=== PATIENT | female | born 1960 | race Caucasian/White ===

== ENCOUNTER 2017-06-06 15:18 | Inpatient (IN) | payer OTHER ==
[2017-06-06] MEDS ORDERED: ALBUTEROL SO4 2.5/IPRATROPIUM 0.5 INH SOL 3 ML VIAL.NEB. NEB ONE ×2 (15:30→18:02)
[2017-06-06] MEDS ORDERED: ALBUTEROL SO4 0.083% IH SOL 2.5 MG/3 ML VIAL.NEB. NEB ONE (16:20)
[2017-06-06] MEDS ORDERED: methylPREDNISolone NA SUCC 125 MG/2 ML VIAL IVPB ONE (16:20)
[2017-06-06] MEDS ORDERED: ONDANSETRON 4 MG/2 ML VIAL IVPB ONE ×2 (16:20→18:02)
[2017-06-06] MEDS ORDERED: IPRATROPIUM BR 0.02% 0.5 MG/2.5 ML VIAL.NEB. NEB ONE (16:20)
--- NOTE | 2017-06-06 16:38 | PDOC ---
History of Present Illness - History of Present Illness Initial Comments: 06/06/17 16:32 56 F with h/o CAD/stents, COPD/asthma, DM, HTN, polysubstance abuse, sent from [facility] for shortness of breath. Pt states that her symptoms began 2 days ago with cough and wheezing. Pt states it feels like her asthma attacks. Denies F/ C. Reports cough productive of white sputum. Denies leg swelling. Denies chest pain. Pt is active smoker, 1 pack per day. Was being treated at [facility] for cocaine abuse. Pt states last asthma exacerbation was years ago. Denies h/o ICU stay or intubation. <Robert Castelan - Last Filed: 06/06/17 16:32> <Taurus Denise - Last Filed: 06/06/17 19:05> - General Chief Complaint: Asthma Stated Complaint: SHORTNESS OF BREATH Time Seen by Provider: 06/06/17 15:50 Past History - Past Medical History Asthma: Yes COPD: Yes HTN: Yes Hypercholesterolemia: Yes Psychiatric Problems: Yes (depression) - Surgical History Cardiac Surgery: Yes (stent x2) - Psycho/Social/Smoking Cessation Hx Suicidal Ideation: No Smoking History: Current every day smoker Have you smoked in the past 12 months: Yes Number of Cigarettes Smoked Daily: 10 Cigars Per Day: 0 Information on smoking cessation initiated: No 'Breaking Loose' booklet given: 06/06/17 Hx Alcohol Use: No Drug/Substance Use Hx: No <Robert Castelan - Last Filed: 06/06/17 16:32> <Taurus Denise - Last Filed: 06/06/17 19:05> - Past Medical History Allergies/Adverse Reactions: Allergies Allergy/AdvReac Type Severity Reaction Status Date / Time erythromycin base Allergy Severe Hives Verified 06/06/17 14:53 Iodinated Contrast- Oral and Allergy Severe Hives Verified 06/06/17 14:53 IV Dye Penicillins Allergy Severe Hives Verified 06/06/17 14:53 Tetracyclines Allergy Severe Hives Verified 06/06/17 14:53 Review of Systems - Review of Systems Comments:: 06/06/17 16:36 "GENERAL/CONSTITUTIONAL: No fever or chills. No weakness. HEAD, EYES, EARS, NOSE AND THROAT: No change in vision. No ear pain or discharge. No sore throat. CARDIOVASCULAR: No chest pain or shortness of breath. RESPIRATORY: +SOB and cough GASTROINTESTINAL: No nausea, vomiting, diarrhea or constipation. GENITOURINARY: No dysuria, frequency, or change in urination. MUSCULOSKELETAL: No joint or muscle swelling or pain. No neck or back pain. SKIN: No rash NEUROLOGIC: No headache, vertigo, loss of consciousness, or change in strength/ sensation. ENDOCRINE: No increased thirst. No abnormal weight change. HEMATOLOGIC/LYMPHATIC: No anemia, easy bleeding, or history of blood clots. ALLERGIC/IMMUNOLOGIC: No hives or skin allergy. " <Ou,Robert - Last Filed: 06/06/17 16:32> *Physical Exam - Vital Signs Last Vital Signs Temp Pulse Resp BP Pulse Ox 98.6 F 92 H 22 160/70 100 06/06/17 15:35 06/06/17 15:39 06/06/17 15:35 06/06/17 15:35 06/06/17 15:39 - Physical Exam Comments: 06/06/17 16:37 "GENERAL: Awake, alert, and fully oriented, in no acute distress HEAD: No signs of trauma EYES: PERRLA, EOMI, sclera anicteric, conjunctiva clear ENT: Auricles normal inspection, hearing grossly normal, nares patent, oropharynx clear without exudates. Moist mucosa NECK: Normal ROM, supple, no lymphadenopathy, JVD, or masses LUNGS: + inspiratory and expiratory wheezes diffusely, no rhonchi, no stridor, bilateral breath sounds HEART: Regular rate and rhythm, normal S1 and S2, no murmurs, rubs or gallops ABDOMEN: Soft, nontender, normoactive bowel sounds. No guarding, no rebound. No masses EXTREMITIES: Normal range of motion, no edema. No clubbing or cyanosis. No cords, erythema, or tenderness NEUROLOGICAL: Cranial nerves II through XII grossly intact. Normal speech, normal gait SKIN: Warm, Dry, normal turgor, no rashes or lesions noted. " <Flip,Robert - Last Filed: 06/06/17 16:32> - Vital Signs Last Vital Signs Temp Pulse Resp BP Pulse Ox 98.2 F 72 16 164/77 95 06/06/17 17:35 06/06/17 17:35 06/06/17 17:35 06/06/17 17:35 06/06/17 17:35 <Taurus Denise - Last Filed: 06/06/17 19:05> Heart Score/ECG Review - ECG Impressions Comment:: 06/06/17 16:39 NSR, no SARAH/STDs, no TWIs, intervals wnl <Ou,Robert - Last Filed: 06/06/17 16:32> ED Treatment Course - RADIOLOGY Radiology Studies Ordered: Category Date Time Status CHEST PA & LAT [RAD] Stat Radiology 06/06/17 16:16 Ordered - Medications Given in the ED: ED Medications Discontinued Medications Generic Name Dose Route Start Last Admin Trade Name Freq PRN Reason Stop Dose Admin Albuterol Sulfate 1 amp 06/06/17 16:20 06/06/17 16:31 Ventolin 0.083% Nebulizer Soln - NEB 06/06/17 16:21 1 amp ONCE ONE Administration Ipratropium [place] 1 amp 06/06/17 16:20 06/06/17 16:30 Atrovent 0.02% Nebulizer - NEB 06/06/17 16:21 1 amp ONCE ONE Administration <Ou,Robert - Last Filed: 06/06/17 16:32> - LABORATORY CBC & Chemistry Diagram: 06/06/17 16:33 06/06/17 16:33 - ADDITIONAL ORDERS Additional order review: Laboratory Results 06/06/17 06/06/17 06/06/17 16:45 16:37 16:33 VBG pH 7.40 POC VBG pCO2 56.7 H POC VBG pO2 22.2 L Mixed VBG HCO3 34.7 H Sodium 123 L* Potassium 2.8 L* Chloride 79 L Carbon Dioxide 31 Anion Gap 13 BUN 10 Creatinine 0.7 Creat Clearance w eGFR > 60 Random Glucose 330 H* Calcium 8.9 Magnesium 1.5 L Total Bilirubin 0.6 AST 11 L ALT 14 Alkaline Phosphatase 122 H B-Natriuretic Peptide Total Protein 7.2 Albumin 3.1 L 06/06/17 16:33 VBG pH POC VBG pCO2 POC VBG pO2 Mixed VBG HCO3 Sodium Potassium Chloride Carbon Dioxide Anion Gap BUN Creatinine Creat Clearance w eGFR Random Glucose Calcium Magnesium Total Bilirubin AST ALT Alkaline Phosphatase B-Natriuretic Peptide 316.77 H Total Protein Albumin 06/06/17 16:33 RBC 4.93 MCV 63.3 L MCHC 31.5 L RDW 17.9 H MPV 7.1 L Neutrophils % 73.1 Lymphocytes % 12.5 Monocytes % 13.0 H Eosinophils % 0.6 Basophils % 0.8 - Medications Given in the ED: ED Medications Discontinued Medications Generic Name Dose Route Start Last Admin Trade Name Charlene PRN Reason Stop Dose Admin Albuterol Sulfate 1 amp 06/06/17 16:20 06/06/17 16:31 Ventolin 0.083% Nebulizer Soln - NEB 06/06/17 16:21 1 amp ONCE ONE Administration Albuterol/Ipratropium 1 amp 06/06/17 18:02 06/06/17 18:18 Duoneb - NEB 06/06/17 18:03 1 amp ONCE ONE Administration Potassium Chloride 100 mls @ 100 mls/hr 06/06/17 17:30 06/06/17 17:34 Potassium Chloride 10 Meq Premix Ivpb - IVPB 06/06/17 18:29 100 mls/hr Q60M MANJEET Administration Sodium Chloride 500 mls @ 500 mls/hr 06/06/17 18:02 06/06/17 18:19 Normal Saline - IV 06/06/17 19:01 500 mls/hr ASDIR STA Administration Ipratropium [place] 1 amp 06/06/17 16:20 06/06/17 16:30 Atrovent 0.02% Nebulizer - NEB 06/06/17 16:21 1 amp ONCE ONE Administration Magnesium Sulfate 2 gm 06/06/17 18:02 06/06/17 18:18 Magnesium Sulfate IVPB 06/06/17 18:03 2 gm ONCE ONE Administration Methylprednisolone Sodium Succinate 125 mg 06/06/17 16:20 06/06/17 16:43 Solu-Medrol - IVPB 06/06/17 16:21 125 mg ONCE ONE Administration Ondansetron HCl 4 mg 06/06/17 16:20 06/06/17 16:43 Zofran Injection IVPB 06/06/17 16:21 4 mg ONCE ONE Administration Ondansetron HCl 8 mg 06/06/17 18:02 06/06/17 18:19 Zofran Injection IVPB 06/06/17 18:03 8 mg ONCE ONE Administration Potassium Chloride 10 meq 06/06/17 17:28 06/06/17 17:34 K-Dur - PO 06/06/17 17:29 10 meq ONCE ONE Administration <Taurus Denise - Last Filed: 06/06/17 19:05> Medical Decision Making - Medical Decision Making 06/06/17 16:39 56 F with asthma/COPD presenting with SOB and wheezing. Lung exam with diffuse inspiratory and expiratory wheezes, consistent with asthma vs COPD. Pt with normal EKG, no evidence of volume overload on exam to suggest heart failure. Pt with no clinical signs of DVT, no h/o DVT. Not on exogenous estrogens. Low suspicion for PE as etiology of pt's symptoms, especially given wheezing on exam. - Labs - CXR - albuterol/atrovent - Steroids - Reassess <Robert Castelan - Last Filed: 06/06/17 16:32> *DC/Admit/Observation/Transfer <Robert Castelan - Last Filed: 06/06/17 16:32> - Discharge Dispostion Admit: Yes <Taurus Denise - Last Filed: 06/06/17 19:05> Diagnosis at time of Disposition: Asthma with COPD with exacerbation, Hyponatremia, Hypokalemia, Hypomagnesemia - Discharge Dispostion Condition at time of disposition: Fair
[2017-06-06] MEDS ORDERED: methylPREDNISolone NA SUCC 125 MG/2 ML VIAL ONE ×2 (16:46→16:47)
[2017-06-06] MEDS ORDERED: ONDANSETRON 4 MG/2 ML VIAL ONE ×2 (16:46→18:00)
[2017-06-06 16:58] LABS: VENOUS BLOOD GAS HCO3 34.7 meq/L (19-25); VENOUS PH 7.4 (7.32-7.42)
[2017-06-06 16:59] LABS: BASOPHIL 0.8 % (0-2.0); EOSINOPHIL 0.6 % (0-4.5); MCHC 31.5 g/dl (32.0-36.0); MEAN CELL VOLUME 63.3 fl (80-96); MEAN PLT VOLUME 7.1 fl (7.5-11.1); NEUTROPHILS 73.1 % (42.8-82.8); PLATELET COUNT 391 K/MM3 (134-434); RDW 17.9 % (11.6-15.6); WHITE BLOOD COUNT 8.4 K/mm3 (4.0-10.0)
[2017-06-06 17:02] LABS: MCH 19.9 pg (25.7-33.7)
[2017-06-06 17:14] LABS: ALBUMIN 3.1 g/dl (3.4-5.0); ANION GAP 13 (8-16); CALCIUM 8.9 mg/dL (8.5-10.1); CO2 31 mmol/L (21-32); CREATININE 0.7 mg/dL (0.55-1.02); SGOT/AST 11 U/L (15-37); SGPT/ALT 14 U/L (12-78)
[2017-06-06 17:16] LABS: ALK PHOS 122 U/L (45-117); BILIRUBIN,TOTAL 0.6 mg/dL (0.2-1.0); TOT PROT 7.2 g/dl (6.4-8.2)
[2017-06-06 17:18] LABS: GLUCOSE,RANDOM 330 mg/dL (74-106)
[2017-06-06] MEDS ORDERED: POTASSIUM CHLORIDE TABS 10 MEQ TABLET.ER (FP) PO ONE (17:28)
[2017-06-06] MEDS ORDERED: KCL 10 MEQ IVPB 100 ML IVPB SCH (17:30)
[2017-06-06] MEDS ORDERED: POTASSIUM CHLORIDE TABS 10 MEQ TABLET.ER (FP) ONE (17:37)
[2017-06-06] MEDS ORDERED: KCL 10 MEQ IVPB 100 ML IVPB ONE (17:37)
--- NOTE | 2017-06-06 17:52 | PN ---
Progress Note (short form) - Note Progress Note: PULMONARY CONSULTATION DICTATED 06/06/17 IMP ACUTE HYPOXEMIC RESPIRATORY FAILURE SECONDARY TO COPD/ASTHMA EXACERBATION LIKELY DUE TON INHALATION OF CRACK COCAINE LIKELY CHRONIC HYPERCAPNEA HYPONATREMIA ASHD S/P STENTS HTN POLYSUBSTANCE ABUSE TOBACCO ABUSE PLAN IV STEROIDS INHALED BRONCHODILATORS O2 URINE LYTES REPLETE K ABG CHEST CT AM PFTS MONITOR CONOR IVEY Problem List - Problems (1) Acute hypoxemic respiratory failure Code(s): J96.01 - ACUTE RESPIRATORY FAILURE WITH HYPOXIA (2) Hypercapnia Code(s): R06.89 - OTHER ABNORMALITIES OF BREATHING (3) Hyponatremia Code(s): E87.1 - HYPO-OSMOLALITY AND HYPONATREMIA (4) Polysubstance (including opioids) dependence without physiological dependence Code(s): F19.20 - OTHER PSYCHOACTIVE SUBSTANCE DEPENDENCE, UNCOMPLICATED (5) Tobacco abuse Code(s): Z72.0 - TOBACCO USE (6) Tobacco abuse counseling Code(s): Z71.6 - TOBACCO ABUSE COUNSELING (7) ASHD (arteriosclerotic heart disease) Code(s): I25.10 - ATHSCL HEART DISEASE OF [place] CORONARY ARTERY W/O ANG PCTRS (8) Asthma with COPD with exacerbation Code(s): J44.1 - CHRONIC OBSTRUCTIVE PULMONARY DISEASE W (ACUTE) EXACERBATION J45.901 - UNSPECIFIED ASTHMA WITH (ACUTE) EXACERBATION
[2017-06-06] MEDS ORDERED: SODIUM CHLORIDE 500 ML IV STA (18:02)
[2017-06-06] MEDS ORDERED: MAGNESIUM SULF 50% (8.12 MEQ/2 ML-1 GM VIAL) IVPB ONE (18:02)
[2017-06-06] MEDS: ALBUTEROL SO4 2.5/IPRATROPIUM 0.5 INH SOL 3 ML VIAL.NEB. NEB SCH ×2 (18:03→23:35)
[2017-06-06] MEDS ORDERED: MAGNESIUM SULF 50% (8.12 MEQ/2 ML-1 GM VIAL) ONE (18:05)
[2017-06-06 18:33] LABS: PLATELET ESTIMATE ADEQUATE (NORMAL); POLYCHROMASIA 1+
[2017-06-06 18:34] LABS: HYPOCHROMIA 3+; POIKILOCYTOSIS 1+
[2017-06-06 18:35] LABS: MACROCYTOSIS 1+; MICROCYTOSIS 2+; OVALOCYTE 1+
[2017-06-06] MEDS ORDERED: POTASSIUM CHLORIDE TABS 20 MEQ TABLET.ER (FP) PO ONE ×2 (19:05→19:46)
[2017-06-06] MEDS ORDERED: ONDANSETRON 4 MG/2 ML VIAL IVPB PRN (19:49)
[2017-06-06] MEDS ORDERED: SIMETHICONE 80 MG TAB.CHEW (FP) PO PRN (21:05)
[2017-06-06] MEDS ORDERED: NITROGLYCERIN SUBLINGUAL 1/150 0.4 MG TAB SL PRN (21:05)
[2017-06-06] MEDS ORDERED: traZODone HCL 50 MG TABLET (FP) PO SCH (21:15)
--- NOTE | 2017-06-06 21:31 | HP ---
CHIEF COMPLAINT: shortness of breath PCP: Dr. Prince Chang HISTORY OF PRESENT ILLNESS: 56 yo F with significant PMHx of crack use, asthma, CAD(s/p stentsx2),DM, HTN, and HLD presents from [facility] with 2 day history of increase shortness of breath. She states that she has been smoking crack since Oct. and as of 2 days she has been severely short of breath and her rescue albuterol inhaler has not helped. She has accompanied cough and thick white mucous production. She has never been hospitalized or intubated for exacerbation in her life. She has been diagnosed with asthma since her 30's just requiring albuterol PRN. She has been smoking crack cocaine off and on for several years most recently since 2016. She has moved from [place] and has done detox multiple times in past. She is also complaining of some nausea and abdominal fullness she describes as "gas ". No BM in approx. 5 days. Denies fever, chills, sick contacts, CP, MERRITT, palpitations, or urinary symptoms. ER course was notable for: (1)VGB showed hypoxia and hypercapnia- given Duonebs and solumedrol with good response. (2)CXR shows no acute pathology. (3)EKG shows NSR with no st or t wave abnormalities. (4)Corrected Na-129 and hypomagnesemia. Recent Travel:Denies PAST MEDICAL HISTORY:crack use, asthma, CAD(s/p stentsx2),DM, HTN,depression, and HLD PAST SURGICAL HISTORY: cyst removal and tubal ligation. Social History: Smokin pack year history. smokes 0.5 ppd. Alcohol:no current use. abuse in past. last drink >5 yrs ago. Drugs: Smokes crack cocaine. Family History: Mother - of diabetic coma, Father- IA at age 72 Allergies erythromycin base Allergy (Severe, Verified 06/06/17 14:53) Hives Iodinated Contrast- Oral and IV Dye Allergy (Severe, Verified 06/06/17 14:53) Hives Penicillins Allergy (Severe, Verified 06/06/17 14:53) Hives Tetracyclines Allergy (Severe, Verified 06/06/17 14:53) Hives HOME MEDICATIONS: Home Medications Medication Instructions Recorded Albuterol Sulfate Inhaler - 1 - 2 inh PO Q4H 06/06/17 [Ventolin Hfa Inhaler -] Ferrous Sulfate 325 mg PO DAILY 06/06/17 Fluoxetine HCl 20 mg PO DAILY 06/06/17 Glyburide 5 mg PO DAILY 06/06/17 Insulin Glargine,Hum.rec.anlog 30 units SQ HS 06/06/17 [Lantus (nf)] Losartan Potassium 100 mg PO DAILY 06/06/17 Metformin HCl [Metformin HCl ER] 1,000 mg PO DAILY 06/06/17 Nitroglycerin Sublingual 0.4 mg SL Q5M PRN 06/06/17 Pregabalin [Lyrica] 100 mg PO DAILY 06/06/17 Simvastatin 40 mg PO DAILY 06/06/17 Trazodone HCl 50 mg PO DAILY 06/06/17 REVIEW OF SYSTEMS CONSTITUTIONAL: Absent: fever, chills, diaphoresis, generalized weakness, malaise, loss of appetite, weight change HEENT: Absent: rhinorrhea, nasal congestion, throat pain, throat swelling, difficulty swallowing, mouth swelling, ear pain, eye pain, visual changes CARDIOVASCULAR: Absent: chest pain, syncope, palpitations, irregular heart rate, lightheadedness , peripheral edema RESPIRATORY: cough, shortness of breath, dyspnea with exertion Absent: , orthopnea, wheezing, stridor, hemoptysis GASTROINTESTINAL:abdominal pain, abdominal distension, nausea, constipation Absent: vomiting, diarrhea,, melena, hematochezia GENITOURINARY: Absent: dysuria, frequency, urgency, hesitancy, hematuria, flank pain, genital pain MUSCULOSKELETAL: Absent: myalgia, arthralgia, joint swelling, back pain, neck pain SKIN: Absent: rash, itching, pallor HEMATOLOGIC/IMMUNOLOGIC: Absent: easy bleeding, easy bruising, lymphadenopathy, frequent infections ENDOCRINE: Absent: unexplained weight gain, unexplained weight loss, heat intolerance, cold intolerance NEUROLOGIC: Absent: headache, focal weakness or paresthesias, dizziness, unsteady gait, seizure, mental status changes, bladder or bowel incontinence PSYCHIATRIC: anxiety Absent: , depression, suicidal or homicidal ideation, hallucinations. PHYSICAL EXAMINATION Vital Signs - 24 hr 06/06/17 20:42 Pulse Rate [ 76 Left Apical] Respiratory 18 Rate Blood Pressure 190/79 [Left Arm] O2 Sat by Pulse 100 Oximetry (%) GENERAL: Cachectic, Awake, alert, and fully oriented,mild distress. HEAD: NC/AT EYES: PERRLA, EOMI, sclera anicteric, conjunctiva clear. No lid lag. EARS, NOSE, THROAT: moist mucous membranes. NECK: Supple, No JVD LUNGS: scattered dry crackles, expiatory wheezes, No accessory muscle use. HEART:tachycardic, normal S1 and S2 without murmur, rub or gallop. ABDOMEN: Soft, nontender, mildly distended, normoactive bowel sounds, no guarding, no rebound, no masses. No hepatomegaly or splenomegaly. MUSCULOSKELETAL: Normal range of motion at all joints. No bony deformities or tenderness. No CVA tenderness. UPPER EXTREMITIES: 2+ pulses, warm, well-perfused. No cyanosis. No clubbing. No peripheral edema. LOWER EXTREMITIES: 2+ pulses, warm, well-perfused. No calf tenderness. No peripheral edema. NEUROLOGICAL: Cranial nerves II-XII intact. Normal speech. gait not observed. PSYCHIATRIC: Cooperative. Good eye contact. Anxious SKIN: Warm, dry, normal turgor, no rashes or lesions noted, normal capillary refill. Abnormal Lab Results 06/06/17 06/06/17 06/06/17 16:33 16:33 16:33 Hgb 9.8 L Hct 31.2 L MCV 63.3 L MCH 19.9 L MCHC 31.5 L RDW 17.9 H MPV 7.1 L Monocytes % 13.0 H POC VBG pCO2 POC VBG pO2 Mixed VBG HCO3 Sodium 123 L* Potassium 2.8 L* Chloride 79 L Random Glucose 330 H* Magnesium AST 11 L Alkaline Phosphatase 122 H B-Natriuretic Peptide 316.77 H Albumin 3.1 L 06/06/17 06/06/17 16:37 16:45 Hgb Hct MCV MCH MCHC RDW MPV Monocytes % POC VBG pCO2 56.7 H POC VBG pO2 22.2 L Mixed VBG HCO3 34.7 H Sodium Potassium Chloride Random Glucose Magnesium 1.5 L AST Alkaline Phosphatase B-Natriuretic Peptide Albumin ASSESSMENT/PLAN: 56 yo F with significant PMHx of crack use, asthma, CAD(s/p stentsx2),DM, HTN, and HLD admitted for acute hypoxic hypercapnic respiratory failure with hyponatremia. Problem List - Problem (1) Acute hypoxemic respiratory failure Assessment/Plan: * Acute asthma exacerbation ER peak flow 150 * Pulmonary consult appreciated - Dr. Brill * Started on Solumedrol 60mg IV Q8H * Supplemental O2 via NC to maintain SpO2 @ 90% - caution not to aim for 100% as this could worsen v/q mismatch. * Duonebs QID and albuterol PRN * Incentive spirometer. * CT in AM for further evaluation (2) Hypercapnia Assessment/Plan: * refer to acute respiratory failure above for management. * Caution not to aim for higher O2 sat as she is most likely a chronic retainer and this could worsen V/Q mismatch. * repeat ABG in AM (3) Hyponatremia Assessment/Plan: * SIADH v. psychogenic polydypsia * Ordered Urine lytes and Urine Na to assess FeNa * Serum osmolarity pending * Fluid restriction 1L for 24hrs. * Repeat BMP in AM (4) Hypokalemia Assessment/Plan: * replenished with IV and PO * repeat BMP in AM * Will also replenish Mg. (5) Hypomagnesemia Assessment/Plan: * Replete with IV and PO Mag. * Will repeat Mg in AM (6) Diabetes mellitus Assessment/Plan: * Blood glucose >300 on admission * Has not take diabetic medication in 6 mo. * Held oral hypogylcemics * Placed on Levemir 10 U HS * Novolog ISS ACHS * BGM ACHS * Diabetic diet. (7) CAD (coronary artery disease) Assessment/Plan: * Continue statin * continue noelle SL prn -angina. (8) HTN (hypertension) Assessment/Plan: * Will continue Losartan 100mg PO daily (9) Crack cocaine use Assessment/Plan: * She was at [facility] for detox of crack use which most likely triggered acute exacerbation. * Will monitor for excessive somnolence or suicidal ideation. (10) Tobacco abuse Assessment/Plan: * 21mg nicotine patch. (11) DVT prophylaxis Assessment/Plan: * SCD's bilateral lower ext. Visit type - Emergency Visit Emergency Visit: Yes ED Registration Date: 06/06/17 Care time: The patient presented to the Emergency Department on the above date and was hospitalized for further evaluation of their emergent condition. - New Patient This patient is new to me today: Yes Date on this admission: 06/06/17 - Critical Care Critical Care patient: No
[2017-06-06] MEDS ORDERED: INSULIN DETEMIR 100 UNITS/ML MDV SQ SCH (22:00)
[2017-06-06] MEDS: methylPREDNISolone NA SUCC 40 MG/1 ML VIAL IVPB SCH (22:00)
[2017-06-06] MEDS: NICOTINE 21 MG/24 HOURS TOPICAL PATCH TD SCH (22:57)
[2017-06-06] MEDS: INSULIN SLIDING SCALE (NOVOLOG) 1 VIAL SQ SCH (23:02)
--- NOTE | 2017-06-06 23:06 | PN ---
Teaching Attending Note Name of Resident: Christian Renee ATTENDING PHYSICIAN STATEMENT I saw and evaluated the patient. I reviewed the resident's note and discussed the case with the resident. I agree with the resident's findings and plan as documented. SUBJECTIVE: This is a 56 year old woman with a history of CAD, stents, asthma, type 2 DM, HTN, hyperlipidemia, depression, substance abuse who comes to the ER from [facility] complaining of shortness of breath. She went to [facility] today for alcohol and cocaine detox. She was noted to be in respiratory distress with wheezing and she had an oxygen saturation of 88%. She was treated with DuoNeb and sent to the ER. She says she has had a cough with white sputum, wheezing and shortness of breath, similar to an asthma attack, for 2 days. She denies fever, chills, hemoptysis. She smokes cigarettes and crack. She is non- compliant with her medications and drinks . OBJECTIVE: Vital Signs Period Temp Pulse Resp BP Sys/Reynoso Pulse Ox Last 24 Hr 98.2 F-98.6 F 72-92 16-22 160-190/70-79 84-100 HEART: S1S2, RRR LUNGS: Bilateral crackles ABDOMEN: Soft, non-tender, non-distended, normal BS EXTREMITIES: No edema ASSESSMENT AND PLAN: 1. Acute hypoxic respiratory failure secondary to asthma exacerbation from inhaling crack - SoluMedrol, DuoNeb - Pulmonary consult appreciated - Chest CT ordered - Oxygen to maintain saturation > 90% 2. Probable chronic hypercapnic respiratory failure 3. CAD, history of stents 4. HTN - Continue Cozaar 5. Hyperlipidemia - Continue Zocor 6. Type 2 DM, uncontrolled - Hold metformin, Glyburide - Continue Lantus - Fingertsticks with Novolog sliding scale - Check HgbA1c 7. Depression - Hold Prozac, Trazodone secondary to hyponatremia 8. Nicotine dependence - Nicotine patch 9. Cocaine dependence 10. Anemia, microcytic - Continue ferrous sulfate - Check iron studies, stool occult blood 11. Hyponatremia - Sodium is 129 corrected for hypoglycemia - Likely secondary to water intake - Fluid restriction, glucose control, hold Trazodone and Prozac - Monitor sodium 12. Hypokalemia - Potassium supplementation given in ER 13. Hypomagnesemia - Magnesium supplementation given in ER
[2017-06-06 23:41] LABS: URINE APPEARANCE CLEAR; URINE BILIRUBIN NEGATIVE (NEGATIVE); URINE BLOOD 1+ (NEGATIVE); URINE COLOR LTYELLOW; URINE GLUCOSE (UA) 3+ (NEGATIVE); URINE KETONE 1+ (NEGATIVE); URINE LEUK ESTERASE NEGATIVE (NEGATIVE); URINE NITRITE NEGATIVE (NEGATIVE); URINE UROBILINOGEN 4.0 E.U/dl mg/dL (0.2-1.0)
[2017-06-06 23:42] LABS: URINE PROTEIN 1+ (NEGATIVE)
[2017-06-06 23:44] LABS: URINE MUCUS RARE; URINE RBC 5 /hpf (0-3); URINE WBC 3 /hpf (3-5)
[2017-06-07] MEDS: methylPREDNISolone NA SUCC 40 MG/1 ML VIAL IVPB SCH ×5 (02:38→20:59)
[2017-06-07] MEDS: BENZOCAINE/MENTH/CETYLPYRD CL 1 EACH LOZENGE MM PRN (02:39)
[2017-06-07] MEDS ORDERED: ACETAMINOPHEN 325 MG TABLET (FP) PO PRN (04:30)
[2017-06-07] MEDS: DOCUSATE SODIUM 100 MG CAPSULE (FP) PO SCH ×3 (05:25→20:59)
[2017-06-07] MEDS: INSULIN SLIDING SCALE (NOVOLOG) 1 VIAL SQ SCH ×4 (06:28→21:10)
[2017-06-07] MEDS: ALBUTEROL SO4 2.5/IPRATROPIUM 0.5 INH SOL 3 ML VIAL.NEB. NEB SCH ×4 (06:42→23:40)
[2017-06-07] MEDS ORDERED: PNEUMOC 13-VAL CONJ-DIP CRM/PF 0.5 ML DISP.SYRIN IM ONE (08:00)
[2017-06-07 08:08] LABS: BASOPHIL 0.2 % (0-2.0); MEAN CELL VOLUME 63.1 fl (80-96); PLATELET COUNT 490 K/MM3 (134-434); RDW 17.8 % (11.6-15.6); WHITE BLOOD COUNT 6.5 K/mm3 (4.0-10.0)
[2017-06-07 08:25] LABS: MCH 19.6 pg (25.7-33.7)
[2017-06-07 08:35] LABS: ALBUMIN 3.1 g/dl (3.4-5.0); ANION GAP 13 (8-16); CALCIUM 9.1 mg/dL (8.5-10.1); CO2 28 mmol/L (21-32); GLUCOSE,RANDOM 284 mg/dL (74-106); MAGNESIUM 2.2 mg/dL (1.8-2.4); PHOSPHOROUS 2.7 mg/dL (2.5-4.9)
[2017-06-07 08:36] LABS: SGOT/AST 4 U/L (15-37)
[2017-06-07 08:38] LABS: ALK PHOS 126 U/L (45-117); BILIRUBIN,TOTAL 0.6 mg/dL (0.2-1.0); CREATININE 0.6 mg/dL (0.55-1.02); SGPT/ALT 13 U/L (12-78); TOT PROT 7.4 g/dl (6.4-8.2)
[2017-06-07] MEDS ORDERED: PNEUMOCOCCAL 23 VACCINE 0.5 ML VIAL IM ONE (09:00)
--- NOTE | 2017-06-07 09:22 | EKG ---
Test Reason : Blood Pressure : / mmHG Vent. Rate : 078 BPM Atrial Rate : 078 BPM P-R Int : 130 ms QRS Dur : 104 ms QT Int : 382 ms P-R-T Axes : 070 044 005 degrees QTc Int : 435 ms NORMAL SINUS RHYTHM WITH SINUS ARRHYTHMIA POSSIBLE LEFT ATRIAL ENLARGEMENT NONSPECIFIC T WAVE ABNORMALITY ABNORMAL ECG NO PREVIOUS ECGS AVAILABLE Confirmed by MD LUBNA, IBAN ([id number]) on 06/07/2017 9:22:39 AM Referred By: Confirmed By:IBAN CALVO MD
[2017-06-07] MEDS: LOSARTAN POTASSIUM 50 MG TABLET (FP) PO SCH (10:23)
[2017-06-07] MEDS: PREGABALIN 100 MG CAPSULE PO SCH (10:23)
[2017-06-07] MEDS: NICOTINE 21 MG/24 HOURS TOPICAL PATCH TD SCH (10:23)
[2017-06-07 10:26] LABS: ARTERIAL BLD GAS O2 SATURATION 84.5 % (90-98.9); ARTERIAL BLOOD GAS BASE EXCESS 4.8 meq/l (-2-2); ARTERIAL BLOOD GAS HCO3 28.8 meq/L (22-26); ARTERIAL BLOOD GAS PO2 53.3 mmHg (80-100); ARTERIAL BLOOD GAS pH 7.45 (7.35-7.45)
[2017-06-07 10:27] LABS: ALLENS TEST POSITIVE; ART PUNCT SITE LEFT BRACHIAL; LPM/O2% N; PT. ON O2? NO; TYPE OF O2 R/A
[2017-06-07] MEDS ORDERED: INSULIN DETEMIR 100 UNITS/ML MDV SQ SCH (10:54)
--- NOTE | 2017-06-07 11:03 | PN ---
Progress Note (short form) - Note Progress Note: c/o dyspnea on exertion for 2 days assoc with productive cough of "mucousy" sputum. states she went to [facility] yesterday for detox from cocaine, was feeling short of breath was told her oxygen level was 88% which did not improve with neb treatment and was sent to the hospital. states she smokes cocaine regularly with her last use yesterday, does not have regular supplier from whom she obtains drugs from. only uses rescue inhaler. prior to the past 2 days she states she barely ever uses her inhaler and is not on any maintenance medications. has desires to stop using drugs as she wants to be there fro her children. was clean in the past for several years but relapsed in October 2016. denies Cp, fever, chills, N/V/C/D. never been hospitalized in the past never been intubated. smokes cocaine daily, denies IVDA or other illicit drug use. Current Medications Generic Name Dose Route Start Last Admin Trade Name Freq PRN Reason Stop Dose Admin Acetaminophen 650 mg 06/07/17 04:30 06/07/17 05:25 Tylenol - PO 650 mg Q6H PRN Administration FEVER OR PAIN Albuterol/Ipratropium 1 amp 06/06/17 18:00 06/07/17 06:42 Duoneb - NEB 1 amp QIDR MANJEET Administration Atorvastatin Calcium 10 mg 06/07/17 22:00 Lipitor - PO HS MANJEET Benzocaine/Menthol 1 each 06/07/17 01:37 06/07/17 02:39 Cepacol Lozenge - MM 1 each PRN PRN Administration SORE THROAT Docusate Sodium 100 mg 06/07/17 06:00 06/07/17 05:25 Colace - PO 100 mg TID MANJEET Administration Insulin Aspart 1 vial 06/06/17 22:00 06/07/17 06:28 Novolog Vial Sliding Scale - SQ 8 units ACHS MANJEET Administration Protocol Insulin Detemir 10 units 06/06/17 22:00 06/06/17 23:01 Levemir Vial SQ 10 units HS MANJEET Administration Losartan Potassium 100 mg 06/07/17 10:00 06/07/17 10:23 Cozaar - PO 100 mg DAILY MANJEET Administration Methylprednisolone Sodium Succinate 60 mg 06/06/17 21:00 06/07/17 10:23 Solu-Medrol - IVPB 60 mg Q6H-IV MAJNEET Administration Nicotine 21 mg 06/06/17 21:15 06/07/17 10:23 Nicoderm Patch - TD 21 mg DAILY MANJEET Administration Nitroglycerin 0.4 mg 06/06/17 21:05 Nitrostat - SL Q5M PRN FOR CHEST PAIN Ondansetron HCl 4 mg 06/06/17 19:49 Zofran Injection IVPB Q6H PRN NAUSEA Polyethylene Glycol 17 gm 06/07/17 10:00 Miralax (For Daily Use) - PO BID MANJEET Pregabalin 100 mg 06/07/17 10:00 06/07/17 10:23 Lyrica - PO 100 mg DAILY MANJEET Administration Simethicone 80 mg 06/06/17 21:05 Mylicon - PO QID PRN GAS Last Vital Signs Temp Pulse Resp BP Pulse Ox 98.1 F 97 H 22 145/81 96 06/07/17 09:09 06/07/17 09:09 06/07/17 09:09 06/07/17 09:09 06/06/17 23:38 General mildly anxious, unable to sit still CV S1 S2 RRR no murmur/rub/gallop Lungs diffuse wheezing, rhonchi. poor inspiratory effort Abdomen soft NT/ND no rebound or guarding Extremities no rashes CBCD WBC 6.5 K/mm3 (4.0-10.0) 06/07/17 06:00 RBC 5.26 M/mm3 (3.60-5.2) H 06/07/17 06:00 Hgb 10.3 GM/dL (10.7-15.3) L 06/07/17 06:00 Hct 33.2 % (32.4-45.2) 06/07/17 06:00 MCV 63.1 fl (80-96) L 06/07/17 06:00 MCHC 31.0 g/dl (32.0-36.0) L 06/07/17 06:00 RDW 17.8 % (11.6-15.6) H 06/07/17 06:00 Plt Count 490 K/MM3 (134-434) H D 06/07/17 06:00 MPV 7.0 fl (7.5-11.1) L 06/07/17 06:00 CMP Sodium 129 mmol/L (136-145) L 06/07/17 06:00 Potassium 5.0 mmol/L (3.5-5.1) D 06/07/17 06:00 Chloride 88 mmol/L (98-107) L D 06/07/17 06:00 Carbon Dioxide 28 mmol/L (21-32) 06/07/17 06:00 Anion Gap 13 (8-16) 06/07/17 06:00 BUN 11 mg/dL (7-18) 06/07/17 06:00 Creatinine 0.6 mg/dL (0.55-1.02) 06/07/17 06:00 Creat Clearance w eGFR > 60 (>60) 06/07/17 06:00 Calcium 9.1 mg/dL (8.5-10.1) 06/07/17 06:00 Total Bilirubin 0.6 mg/dL (0.2-1.0) 06/07/17 06:00 AST 4 U/L (15-37) L D 06/07/17 06:00 ALT 13 U/L (12-78) 06/07/17 06:00 Alkaline Phosphatase 126 U/L (45-117) H 06/07/17 06:00 Total Protein 7.4 g/dl (6.4-8.2) 06/07/17 06:00 Albumin 3.1 g/dl (3.4-5.0) L 06/07/17 06:00 A/P 56yo F with PMH CAD s/p stents, asthma, DM, HTN, dyslipidemia and depression presented with acute hypoxic respiratory distres 1. Acute hypoxic respiratory distress- likley acute COPD exacerbation vs irritation from cocaine use. currently saturating 90% on RA. CXR clear. CT chest done this AM. on medrol 60mg Q6H will titrate down as tolerated. nebs standing and prn. pulmonary consulted. supplemental oxygen as needed. 2. Hyponatremia- Corrected Na 133. now resolved 3. Hypokalemia- resolved 4. Hypomagnesemia- resolved 5. DM- uncontrolled. A1c 11.6. increase levemir to 15mg, educated on need for medication compliance. diabetic diet. iss, bgm 6. Acute cocaine withdrawal- mild withdrawal symptoms with agitation. will give one time dose of ativan. consult johnathon as pt is interested in rehab and sobriety. counseled on risks of continued use including worsening lungs symptoms and cardiac arrest 7. continuous nicotine dependence- nicotine patch. counseled on risks of smoking including deterioration of overall health including lung disease, cancer and early cardiac 8. HTN- controlled. cont cozarr 9. dyslipidemia- statin 10. depression- no suicidal/homicidal thoughts 11. Acute microcytic anemia- no signs of bleeding. Hgb stable. iron studies pending. no indication for blood transfusion 12. DVT ppx- start lovenox Visit type - Emergency Visit Emergency Visit: Yes ED Registration Date: 06/06/17 Care time: The patient presented to the Emergency Department on the above date and was hospitalized for further evaluation of their emergent condition. - New Patient This patient is new to me today: Yes Date on this admission: 06/07/17 - Critical Care Critical Care patient: No - Discharge Referral Referred to [facility] Med P.C.: No
[2017-06-07] MEDS ORDERED: ALPRAZolam 0.25 MG TABLET PO ONE (11:23)
[2017-06-07] MEDS: ENOXAPARIN NA (PORCINE) 40 MG/0.4 ML DISP.SYRIN SQ SCH (11:42)
[2017-06-07] MEDS: POLYETHYLENE GLYCOL 3350 119 GM BTL PO SCH ×2 (11:42→21:00)
--- NOTE | 2017-06-07 12:16 | CONS ---
DATE OF CONSULTATION: 06/06/2017 PULMONARY CONSULTATION REFERRING PHYSICIAN: Taurus Denise MD HISTORY OF PRESENT ILLNESS: The patient is a 56-year-old white female with a past medical history of COPD/asthma, ASHD, status post stents x2, polysubstance abuse, hypertension and diabetes, admitted to [facility], secondary to shortness of breath. The patient states the symptoms began 2 days ago, associated with shortness of breath, cough and wheezing. At the time, she states, she was snorting cocaine. She went to detoxify and had increasing symptoms, at which time she was advised to go the emergency room at [facility]. In the emergency room, she was noted to be hypoxemic, with an O2 saturation of 84% on room air. She was administered inhaled bronchodilator, supplemental O2 and steroids, with a good clinical response. The patient has a history of tobacco use for many years and currently still smokes a about a pack or 2 a day. There is no history of occupational exposure to chemical or fumes. There is no history of recent travel. There is no history of respiratory failure requiring ventilatory support. She states that she is maintained on inhaled beta agonist. She denies hemoptysis. She denies any fevers, weight loss or night sweats. PAST MEDICAL HISTORY: Again, includes ASHD, status post stent x2, COPD/asthma, diabetes, hypertension, polysubstance abuse. CURRENT MEDICATIONS: Include potassium chloride. Medications administered Solu-Medrol, albuterol and DuoNeb. REVIEW OF SYSTEMS: Positive cough, positive shortness of breath, positive chest tightness. No fever, no chills, no hemoptysis, no abdominal pain, no lower extremity edema. PHYSICAL EXAMINATION: General: The patient is a chronically ill-appearing white female, thin, well-developed, awake, alert, in no acute respiratory distress. Vitals: She is currently afebrile. Blood pressure 164/77, respiratory rate 16. Mildly dyspneic and O2 saturation is 95% on 2 L and 84% on room air. HEENT: Normocephalic, atraumatic. Neck: Supple. Heart: Regular with normal S1 and S2. Chest: Scattered bilateral wheezes throughout. Abdomen: Soft. Bowel sounds are positive. Extremities: No cyanosis or edema. DIAGNOSTIC STUDIES: WBC 8.4, hemoglobin 9.8, hematocrit 31.2; platelet count 391,000. Venous blood gas pH 7.40, pCO2 of 56, pO2 of 22, bicarbonate 34. Sodium 123, potassium 2.8. BNP 316. Chest x-ray reveals no infiltrates and no effusions. IMPRESSION: 1. Acute hypoxemic respiratory failure. 2. Chronic obstructive pulmonary disease/asthma exacerbation, most likely secondary to inhalation of crack. 3. Chronic hypercapnic respiratory failure, as noted on venous blood gas. 4. Severe electrolyte abnormality with hyponatremia. 5. Anemia. 6. Polysubstance abuse. 7. Atherosclerotic heart disease, status post stents. PLAN: Inhaled bronchodilators, supplemental oxygen, IV steroids. Check arterial blood gas. Correct sodium. Replete potassium. Monitor electrolytes. CT scan of the chest. Monitor peak flow. KEATON IVEY M.D. [id number]
--- NOTE | 2017-06-07 12:36 | PN ---
Progress Note, Physician History of Present Illness: PULMONARY ALERT,FEELING BETTER,LESS DYSPNEIC. - Current Medication List Current Medications: Active Medications Acetaminophen (Tylenol -) 650 mg PO Q6H PRN PRN Reason: FEVER OR PAIN Last Admin: 06/07/17 05:25 Dose: 650 mg Albuterol/Ipratropium (Duoneb -) 1 amp NEB QIDR [facility] Last Admin: 06/07/17 11:08 Dose: 1 amp Atorvastatin Calcium (Lipitor -) 10 mg PO [facility] Benzocaine/Menthol (Cepacol Lozenge -) 1 each MM PRN PRN PRN Reason: SORE THROAT Last Admin: 06/07/17 02:39 Dose: 1 each Docusate Sodium (Colace -) 100 mg PO TID [facility] Last Admin: 06/07/17 05:25 Dose: 100 mg Enoxaparin Sodium (Lovenox -) 40 mg SQ DAILY [facility] Last Admin: 06/07/17 11:42 Dose: 40 mg Insulin Aspart (Novolog Vial Sliding Scale -) 1 vial SQ [facility] PRN Reason: Protocol Last Admin: 06/07/17 11:42 Dose: 10 units Insulin Detemir (Levemir Vial) 15 units SQ [facility] Losartan Potassium (Cozaar -) 100 mg PO DAILY [facility] Last Admin: 06/07/17 10:23 Dose: 100 mg Methylprednisolone Sodium Succinate (Solu-Medrol -) 60 mg IVPB Q6H-IV [facility] Last Admin: 06/07/17 10:23 Dose: 60 mg Nicotine (Nicoderm Patch -) 21 mg TD DAILY [facility] Last Admin: 06/07/17 10:23 Dose: 21 mg Nitroglycerin (Nitrostat -) 0.4 mg SL Q5M PRN PRN Reason: FOR CHEST PAIN Ondansetron HCl (Zofran Injection) 4 mg IVPB Q6H PRN PRN Reason: NAUSEA Polyethylene Glycol (Miralax (For Daily Use) -) 17 gm PO BID [facility] Last Admin: 06/07/17 11:42 Dose: 17 gm Pregabalin (Lyrica -) 100 mg PO DAILY [facility] Last Admin: 06/07/17 10:23 Dose: 100 mg Simethicone (Mylicon -) 80 mg PO QID PRN PRN Reason: GAS - Objective Vital Signs: Vital Signs Temperature 98.1 F 06/07/17 09:09 Pulse Rate 102 H 06/07/17 11:07 Respiratory Rate 22 06/07/17 09:09 Blood Pressure 145/81 06/07/17 09:09 O2 Sat by Pulse Oximetry (%) 88 L 06/07/17 11:07 Constitutional: Yes: Calm, Thin Eyes: Yes: WNL HENT: Yes: WNL Neck: Yes: WNL Cardiovascular: Yes: Regular Rate and Rhythm, S1, S2 Respiratory: Yes: Wheezes (SCATTERED SHUKRI WHEEZES) Gastrointestinal: Yes: Normal Bowel Sounds, Soft Extremities: Yes: WNL Edema: No Labs: CBC, BMP 06/07/17 06:00 06/07/17 06:00 I Laboratory Tests 06/07/17 10:20 ABG pH 7.45 ABG pCO2 at Pt Temp 42.0 ABG pO2 at Pt Temp 53.3 L ABG HCO3 28.8 H ABG O2 Sat (Measured) 84.5 L - ....Imaging Cat Scan: Report Reviewed, Image Reviewed (-MASS,-INFILTRATES,MILD BRONCHIECTASIS) Problem List - Problems (1) Acute hypoxemic respiratory failure Code(s): J96.01 - ACUTE RESPIRATORY FAILURE WITH HYPOXIA (2) Hypercapnia Code(s): R06.89 - OTHER ABNORMALITIES OF BREATHING (3) Hyponatremia Code(s): E87.1 - HYPO-OSMOLALITY AND HYPONATREMIA (4) Polysubstance (including opioids) dependence without physiological dependence Code(s): F19.20 - OTHER PSYCHOACTIVE SUBSTANCE DEPENDENCE, UNCOMPLICATED (5) Tobacco abuse Code(s): Z72.0 - TOBACCO USE (6) Tobacco abuse counseling Code(s): Z71.6 - TOBACCO ABUSE COUNSELING (7) ASHD (arteriosclerotic heart disease) Code(s): I25.10 - ATHSCL HEART DISEASE OF [place] CORONARY ARTERY W/O ANG PCTRS (8) Asthma with COPD with exacerbation Code(s): J44.1 - CHRONIC OBSTRUCTIVE PULMONARY DISEASE W (ACUTE) EXACERBATION J45.901 - UNSPECIFIED ASTHMA WITH (ACUTE) EXACERBATION Assessment/Plan IMP ACUTE HYPOXEMIC RESPIRATORY FAILURE SECONDARY TO COPD/ASTHMA EXACERBATION LIKELY DUE TON INHALATION OF CRACK COCAINE HYPONATREMIA IMPROVING ASHD S/P STENTS HTN POLYSUBSTANCE ABUSE TOBACCO ABUSE PLAN IV STEROIDS SAME DOSE INHALED BRONCHODILATORS O2 PFTS MONITOR LYTES,NA DR BRILL Problem List - Problems (1) Acute hypoxemic respiratory failure Code(s): J96.01 - ACUTE RESPIRATORY FAILURE WITH HYPOXIA (2) Hypercapnia Code(s): R06.89 - OTHER ABNORMALITIES OF BREATHING (3) Hyponatremia Code(s): E87.1 - HYPO-OSMOLALITY AND HYPONATREMIA (4) Polysubstance (including opioids) dependence without physiological dependence Code(s): F19.20 - OTHER PSYCHOACTIVE SUBSTANCE DEPENDENCE, UNCOMPLICATED (5) Tobacco abuse Code(s): Z72.0 - TOBACCO USE (6) Tobacco abuse counseling Code(s): Z71.6 - TOBACCO ABUSE COUNSELING (7) ASHD (arteriosclerotic heart disease) Code(s): I25.10 - ATHSCL HEART DISEASE OF [place] CORONARY ARTERY W/O ANG PCTRS (8) Asthma with COPD with exacerbation Code(s): J44.1 - CHRONIC OBSTRUCTIVE PULMONARY DISEASE W (ACUTE) EXACERBATION J45.901 - UNSPECIFIED ASTHMA WITH (ACUTE) EXACERBATION
--- NOTE | 2017-06-07 20:07 | CONSULT ---
Consult Detox [facility] Reason for Current Admission/Consult: 56 y/o f pt who was transfreed from [facility] 2nd to acute exacerbation of asthma has h/o chronic crack dependency. - History History of Present Illness: Female pt with h/o cocaine abuse/dependency since 1979. Pt has been to multiple rehabs in the past. Pt reports using crack over the past 2 years and heavily over the past 3 months .Pt was admitted to [facility] for rehab on 06/06/2017 but developed acute exacerabation of bronchial asthma and was transfered to ED at [facility] for further evaluation. Pt PMHX - smoker,dm , htn, hyperliidemia , CAD( 2 stents). - History Source History Provided By: Patient Limitations to Obtaining History: No Limitations - Alcohol/Substance Use Hx Alcohol Use: No Hx Substance Use: Yes (crack) Hx Substance Use Treatment: Yes ([facility], [facility] ) - Current Drug/Alcohol Use Crack Route: Smoking Frequency: Daily Amount used: >$100./day Age of first use: 19 Date of Last Use: 06/06/17 - Past Medical History Cardio/Vascular: Yes: CAD, HTN Pulmonary: Yes: Asthma ...: No - Significant Medical Findings: 56 y/o f pt lying in bed with o2 by NC appearing older than stated age . States her breathing has improved . pt is aox3 , cooperative no tremors, no diaphoresis no hallucinations Assessment Plan - Diagnosis (1) Asthma with COPD with exacerbation Status: Acute (2) CAD (coronary artery disease) Status: Chronic Qualifiers: Coronary Disease-Associated Artery/Lesion type: unspecified vessel or lesion type Qualified Code(s): - (3) Crack cocaine use Status: Chronic (4) Diabetes mellitus Status: Chronic Qualifiers: Diabetes mellitus type: type 2 Diabetes mellitus complication status: with unspecified complications Diabetes mellitus senior care insulin use: with senior care use Qualified Code(s): E11.8 - Type 2 diabetes mellitus with unspecified complications; Z79.4 - long-term (current) use of insulin (5) HTN (hypertension) Status: Chronic Qualifiers: Hypertension type: essential hypertension Qualified Code(s): I10 - Essential (primary) hypertension (6) Tobacco dependence Status: Chronic - Plan Plan: Pt may return [facility] to complete REHAB once she is medically cleared . Call intake /admissions for bed . No detox protocol indicated at this time for crack/cocaine . pt counseled on how crack can exacerbate her respiratory problems . - Medication Detox Regimen/Protocol: Not Applicable
[2017-06-07] MEDS: ATORVASTATIN CA 10 MG TABLET (FP) PO SCH (20:59)
[2017-06-07] MEDS ORDERED: FLUCONAZOLE 50 MG TABLET PO ONE (23:13)
[2017-06-08] MEDS ORDERED: PT OWN MED DRAWER 7, Y5N ONE (00:50)
[2017-06-08] MEDS: BENZOCAINE/MENTH/CETYLPYRD CL 1 EACH LOZENGE MM PRN ×2 (00:54→22:54)
[2017-06-08] MEDS ORDERED: guaiFENesin 200 MG/10 ML 10 ML UNIT-DOSE CUPS PO ONE (01:45)
[2017-06-08] MEDS: methylPREDNISolone NA SUCC 40 MG/1 ML VIAL IVPB SCH ×3 (02:24→17:28)
[2017-06-08] MEDS ORDERED: diphenhydrAMINE HCL 25 MG CAPSULE (FP) PO ONE (03:00)
[2017-06-08] MEDS: DOCUSATE SODIUM 100 MG CAPSULE (FP) PO SCH ×3 (06:16→21:45)
[2017-06-08 06:32] LABS: MCHC 30.8 g/dl (32.0-36.0); MEAN CELL VOLUME 63.7 fl (80-96); PLATELET COUNT 488 K/MM3 (134-434); RDW 17.9 % (11.6-15.6)
[2017-06-08 06:34] LABS: MCH 19.6 pg (25.7-33.7)
[2017-06-08 06:54] LABS: ANION GAP 6 (8-16); CALCIUM 9.4 mg/dL (8.5-10.1); CO2 31 mmol/L (21-32); CREATININE 0.8 mg/dL (0.55-1.02); MAGNESIUM 1.8 mg/dL (1.8-2.4); PHOSPHOROUS 2.9 mg/dL (2.5-4.9)
[2017-06-08] MEDS: ALBUTEROL SO4 2.5/IPRATROPIUM 0.5 INH SOL 3 ML VIAL.NEB. NEB SCH ×4 (06:58→23:20)
[2017-06-08 07:11] LABS: GLUCOSE,RANDOM 352 mg/dL (74-106)
--- NOTE | 2017-06-08 07:12 | PN ---
Physical Exam: SUBJECTIVE: Patient seen and examined at bed side. She is doing better . No acute events over night. She complains of productive cough with white thick mucus , tea spoon in amount but no blood in it. She reports constipation. She denies any fever, chills, chest pain, SOB , palpitation, N/V/D. OBJECTIVE: Vital Signs Period Temp Pulse Resp BP Sys/Reynoso Pulse Ox Last 24 Hr 98.0 F-507 F 83-102 20-22 113-147/61-81 88-98 GENERAL: The patient is awake, alert, and fully oriented, in no acute distress. HEAD: Normal with no signs of trauma. EYES: PERRL, extraocular movements intact, sclera anicteric, conjunctiva clear. No ptosis. ENT: Ears normal, nares patent, oropharynx clear without exudates, moist mucous membranes. NECK: Trachea midline, full range of motion, supple. LUNGS: Breath sounds equal,Wheezes (scattered b/l wheezes and rhonchi) , no accessory muscle use. HEART: Regular rate and rhythm, S1, S2 without murmur, rub or gallop. ABDOMEN: Soft, nontender, nondistended, normoactive bowel sounds, no guarding, no rebound, no hepatosplenomegaly, no masses. EXTREMITIES: 2+ pulses, warm, well-perfused, no edema. NEUROLOGICAL: Normal speech, gait not observed. PSYCH: Normal mood, normal affect. SKIN: Warm, dry, normal turgor, no rashes or lesions noted Laboratory Results - last 24 hr 06/06/17 06/07/17 06/07/17 23:00 06:00 06:00 WBC 6.5 RBC 5.26 H Hgb 10.3 L Hct 33.2 MCV 63.1 L MCH 19.6 L MCHC 31.0 L RDW 17.8 H Plt Count 490 H D MPV 7.0 L Neutrophils % 93.0 H D Lymphocytes % 4.7 L D Monocytes % 2.1 L D Eosinophils % 0.0 D Basophils % 0.2 Puncture Site ABG pH ABG pCO2 at Pt Temp ABG pO2 at Pt Temp ABG HCO3 ABG O2 Sat (Measured) ABG O2 Content ABG Base Excess Je Test O2 Delivery Device Oxygen Flow Rate PEEP Sodium 129 L Potassium 5.0 D Chloride 88 L D Carbon Dioxide 28 Anion Gap 13 BUN 11 Creatinine 0.6 Creat Clearance w eGFR > 60 POC Glucometer Random Glucose 284 H Hemoglobin A1c % Serum Osmolality Calcium 9.1 Phosphorus 2.7 Magnesium 2.2 D Ferritin Total Bilirubin 0.6 AST 4 L D ALT 13 Alkaline Phosphatase 126 H Total Protein 7.4 Albumin 3.1 L Urine Color Ltyellow Urine Appearance Clear Urine pH 6.0 Ur Specific [place] 1.010 Urine Protein 1+ H Urine Glucose (UA) 3+ H Urine Ketones 1+ H Urine Blood 1+ H Urine Nitrite Negative Urine Bilirubin Negative Urine Urobilinogen 4.0 e.u/dl H Ur Leukocyte Esterase Negative Urine RBC 5 Urine WBC 3 Ur Epithelial Cells Rare Urine Mucus Rare 06/07/17 06/07/17 06/07/17 06:00 06:00 06:00 WBC RBC Hgb Hct MCV MCH MCHC RDW Plt Count MPV Neutrophils % Lymphocytes % Monocytes % Eosinophils % Basophils % Puncture Site ABG pH ABG pCO2 at Pt Temp ABG pO2 at Pt Temp ABG HCO3 ABG O2 Sat (Measured) ABG O2 Content ABG Base Excess Je Test O2 Delivery Device Oxygen Flow Rate PEEP Sodium Potassium Chloride Carbon Dioxide Anion Gap BUN Creatinine Creat Clearance w eGFR POC Glucometer Random Glucose Hemoglobin A1c % 11.6 H Serum Osmolality 280 Calcium Phosphorus Magnesium Ferritin Cancelled Total Bilirubin AST ALT Alkaline Phosphatase Total Protein Albumin Urine Color Urine Appearance Urine pH Ur Specific [place] Urine Protein Urine Glucose (UA) Urine Ketones Urine Blood Urine Nitrite Urine Bilirubin Urine Urobilinogen Ur Leukocyte Esterase Urine RBC Urine WBC Ur Epithelial Cells Urine Mucus 06/07/17 06/07/17 06/07/17 10:20 11:37 17:18 WBC RBC Hgb Hct MCV MCH MCHC RDW Plt Count MPV Neutrophils % Lymphocytes % Monocytes % Eosinophils % Basophils % Puncture Site Left brachial ABG pH 7.45 ABG pCO2 at Pt Temp 42.0 ABG pO2 at Pt Temp 53.3 L ABG HCO3 28.8 H ABG O2 Sat (Measured) 84.5 L ABG O2 Content 11.7 L ABG Base Excess 4.8 H Je Test Positive O2 Delivery Device R/a Oxygen Flow Rate N PEEP 0.0 Sodium Potassium Chloride Carbon Dioxide Anion Gap BUN Creatinine Creat Clearance w eGFR POC Glucometer 384 343 Random Glucose Hemoglobin A1c % Serum Osmolality Calcium Phosphorus Magnesium Ferritin Total Bilirubin AST ALT Alkaline Phosphatase Total Protein Albumin Urine Color Urine Appearance Urine pH Ur Specific [place] Urine Protein Urine Glucose (UA) Urine Ketones Urine Blood Urine Nitrite Urine Bilirubin Urine Urobilinogen Ur Leukocyte Esterase Urine RBC Urine WBC Ur Epithelial Cells Urine Mucus 06/07/17 06/08/17 06/08/17 21:04 06:00 06:00 WBC 10.0 D RBC 4.78 Hgb 9.4 L Hct 30.4 L MCV 63.7 L MCH 19.6 L MCHC 30.8 L RDW 17.9 H Plt Count 488 H MPV 7.0 L Neutrophils % Lymphocytes % Monocytes % Eosinophils % Basophils % Puncture Site ABG pH ABG pCO2 at Pt Temp ABG pO2 at Pt Temp ABG HCO3 ABG O2 Sat (Measured) ABG O2 Content ABG Base Excess Je Test O2 Delivery Device Oxygen Flow Rate PEEP Sodium 126 L Potassium 4.8 Chloride 89 L Carbon Dioxide 31 Anion Gap 6 L BUN 16 D Creatinine 0.8 D Creat Clearance w eGFR POC Glucometer 342 Random Glucose 352 H* D Hemoglobin A1c % Serum Osmolality Calcium 9.4 Phosphorus 2.9 Magnesium 1.8 Ferritin Total Bilirubin AST ALT Alkaline Phosphatase Total Protein Albumin Urine Color Urine Appearance Urine pH Ur Specific [place] Urine Protein Urine Glucose (UA) Urine Ketones Urine Blood Urine Nitrite Urine Bilirubin Urine Urobilinogen Ur Leukocyte Esterase Urine RBC Urine WBC Ur Epithelial Cells Urine Mucus Active Medications Generic Name Dose Route Start Last Admin Trade Name Freq PRN Reason Stop Dose Admin Acetaminophen 650 mg 06/07/17 04:30 06/07/17 05:25 Tylenol - PO 650 mg Q6H PRN Administration FEVER OR PAIN Albuterol/Ipratropium 1 amp 06/06/17 18:00 06/07/17 23:40 Duoneb - NEB 1 amp QIDR [facility] Administration Atorvastatin Calcium 10 mg 06/07/17 22:00 06/07/17 20:59 Lipitor - PO 10 mg HS [facility] Administration Benzocaine/Menthol 1 each 06/07/17 01:37 06/08/17 00:54 Cepacol Lozenge - MM 1 each PRN PRN Administration SORE THROAT Docusate Sodium 100 mg 06/07/17 06:00 06/08/17 06:16 Colace - PO 100 mg TID [facility] Administration Enoxaparin Sodium 40 mg 06/07/17 11:15 06/07/17 11:42 Lovenox - SQ 40 mg DAILY [facility] Administration Insulin Aspart 1 vial 06/06/17 22:00 06/07/17 21:10 Novolog Vial Sliding Scale - SQ 8 units ACHS [facility] Administration Protocol Insulin Detemir 15 units 06/07/17 10:54 06/07/17 21:11 Levemir Vial SQ 15 units HS [facility] Administration Losartan Potassium 100 mg 06/07/17 10:00 06/07/17 10:23 Cozaar - PO 100 mg DAILY [facility] Administration Methylprednisolone Sodium Succinate 60 mg 06/06/17 21:00 06/08/17 02:24 Solu-Medrol - IVPB 60 mg Q6H-IV [facility] Administration Nicotine 21 mg 06/06/17 21:15 06/07/17 10:23 Nicoderm Patch - TD 21 mg DAILY [facility] Administration Nitroglycerin 0.4 mg 06/06/17 21:05 Nitrostat - SL Q5M PRN FOR CHEST PAIN Ondansetron HCl 4 mg 06/06/17 19:49 Zofran Injection IVPB Q6H PRN NAUSEA Polyethylene Glycol 17 gm 06/07/17 10:00 06/07/17 21:00 Miralax (For Daily Use) - PO 17 gm BID [facility] Administration Pregabalin 100 mg 06/07/17 10:00 06/07/17 10:23 Lyrica - PO 100 mg DAILY [facility] Administration Simethicone 80 mg 06/06/17 21:05 Mylicon - PO QID PRN GAS ASSESSMENT/PLAN: 56 yo F with significant PMHx of crack use, asthma, CAD(s/p stentsx2),DM, HTN, and HLD admitted for acute hypoxic hypercapnic respiratory failure with hyponatremia. # Acute hypoxemic respiratory failure * Acute asthma exacerbation ER peak flow 150 * Pulmonary consult appreciated - Dr. Youssef * Started on Solumedrol 60mg IV Q8H * Supplemental O2 via NC to maintain SpO2 @ 90% - caution not to aim for 100% as this could worsen v/q mismatch. * Duonebs QID and albuterol PRN * Incentive spirometer. * CT shows no acute pathology * consider taper medrol * Consider PFTs as out patient # Hypercapnia * refer to acute respiratory failure above for management. * Caution not to aim for higher O2 sat as she is most likely a chronic retainer and this could worsen V/Q mismatch. * repeat ABG in AM # Hyponatremia, corrected * corrected NA 132 * SIADH v. psychogenic polydypsia * Ordered Urine lytes and Urine Na to assess FeNa * Serum osmolarity pending * Fluid restriction 1L for 24hrs. * Repeat BMP in AM #Acute cocaine withdrawal * mild withdrawal symptoms with agitation. * one dose of ativan was given * consult Detox as pt is interested in rehab and sobriety. * counseled on risks of continued use including worsening lungs symptoms and cardiac arrest # Hypokalemia, resolved * replenished with IV and PO * repeat BMP in AM * Will also replenish Mg. # Hypomagnesemia, resolved * Replete with IV and PO Mag. * Will repeat Mg in AM # Diabetes mellitus, Uncontrolled * HgbA1c 11.6 * Blood glucose 352 today * Has not take diabetic medication in 6 mo. * Held oral hypogylcemics * Increased Levemir to 15 U HS * Novolog ISS ACHS * BGM ACHS * Diabetic diet. * educate the patient about compliant with medicine and diet and the complications # CAD (coronary artery disease) * Continue statin 10 mg po HS * Continue Nitro 0.4 SL PRN for chest pain (angina ) # HTN (hypertension) * BP 147/78 * Will continue Losartan 100mg PO daily #Crack cocaine use * She was at [facility] for detox of crack use which most likely triggered acute exacerbation. * Will monitor for excessive somnolence or suicidal ideation. # Depression : * No suicidal or homicidal ideation * Monitor clinically # Tobacco abuse * 21mg nicotine patch. * Patient counselling # DVT prophylaxis * SCD's bilateral lower ext. * Start Lovenox 40 SQ daily Case was discussed with the attending physician and the medical team. Julio Tomas PGY 1 MD Visit type - Emergency Visit Emergency Visit: Yes ED Registration Date: 06/06/17 Care time: The patient presented to the Emergency Department on the above date and was hospitalized for further evaluation of their emergent condition. - New Patient This patient is new to me today: No - Critical Care Critical Care patient: No
[2017-06-08] MEDS: INSULIN SLIDING SCALE (NOVOLOG) 1 VIAL SQ SCH ×4 (07:34→22:39)
[2017-06-08 08:07] LABS: SERUM IRON 18 ug/dL (27-159); TOTAL IRON BINDING CAPACITY 349 ug/dL (250-450); UIBC 331 ug/dL (131-425)
[2017-06-08] MEDS ORDERED: INSULIN DETEMIR 100 UNITS/ML MDV SQ ONE ×2 (09:42→09:45)
[2017-06-08] MEDS: ENOXAPARIN NA (PORCINE) 40 MG/0.4 ML DISP.SYRIN SQ SCH (09:43)
[2017-06-08] MEDS: PREGABALIN 100 MG CAPSULE PO SCH (09:43)
[2017-06-08] MEDS: LOSARTAN POTASSIUM 50 MG TABLET (FP) PO SCH (09:43)
[2017-06-08] MEDS: POLYETHYLENE GLYCOL 3350 119 GM BTL PO SCH ×2 (09:44→21:46)
[2017-06-08] MEDS: NICOTINE 21 MG/24 HOURS TOPICAL PATCH TD SCH (09:44)
--- NOTE | 2017-06-08 10:46 | PN ---
Progress Note, Physician History of Present Illness: pulmonary alert,clinically improving,+cough - Current Medication List Current Medications: Active Medications Acetaminophen (Tylenol -) 650 mg PO Q6H PRN PRN Reason: FEVER OR PAIN Last Admin: 06/07/17 05:25 Dose: 650 mg Albuterol/Ipratropium (Duoneb -) 1 amp NEB QIDR [facility] Last Admin: 06/08/17 06:58 Dose: 1 amp Atorvastatin Calcium (Lipitor -) 10 mg PO HS [facility] Last Admin: 06/07/17 20:59 Dose: 10 mg Benzocaine/Menthol (Cepacol Lozenge -) 1 each MM PRN PRN PRN Reason: SORE THROAT Last Admin: 06/08/17 00:54 Dose: 1 each Docusate Sodium (Colace -) 100 mg PO TID [facility] Last Admin: 06/08/17 06:16 Dose: 100 mg Enoxaparin Sodium (Lovenox -) 40 mg SQ DAILY [facility] Last Admin: 06/08/17 09:43 Dose: 40 mg Insulin Aspart (Novolog Vial Sliding Scale -) 1 vial SQ ACHS [facility] PRN Reason: Protocol Last Admin: 06/08/17 07:34 Dose: 10 units Insulin Detemir (Levemir Vial) 15 units SQ HS [facility] Last Admin: 06/07/17 21:11 Dose: 15 units Losartan Potassium (Cozaar -) 100 mg PO DAILY [facility] Last Admin: 06/08/17 09:43 Dose: 100 mg Methylprednisolone Sodium Succinate (Solu-Medrol -) 60 mg IVPB Q6H-IV [facility] Last Admin: 06/08/17 09:43 Dose: 60 mg Nicotine (Nicoderm Patch -) 21 mg TD DAILY [facility] Last Admin: 06/08/17 09:44 Dose: 21 mg Nitroglycerin (Nitrostat -) 0.4 mg SL Q5M PRN PRN Reason: FOR CHEST PAIN Ondansetron HCl (Zofran Injection) 4 mg IVPB Q6H PRN PRN Reason: NAUSEA Polyethylene Glycol (Miralax (For Daily Use) -) 17 gm PO BID [facility] Last Admin: 06/08/17 09:44 Dose: 17 gm Pregabalin (Lyrica -) 100 mg PO DAILY [facility] Last Admin: 06/08/17 09:43 Dose: 100 mg Simethicone (Mylicon -) 80 mg PO QID PRN PRN Reason: GAS - Objective Vital Signs: Vital Signs Temperature 97.8 F 06/08/17 09:58 Pulse Rate 79 06/08/17 09:58 Respiratory Rate 20 06/08/17 09:58 Blood Pressure 140/89 06/08/17 09:58 O2 Sat by Pulse Oximetry (%) 98 06/07/17 21:00 Constitutional: Yes: Calm, Thin Eyes: Yes: WNL HENT: Yes: WNL Neck: Yes: WNL Cardiovascular: Yes: Regular Rate and Rhythm, S1, S2 Respiratory: Yes: Wheezes (scattered nicolle wheezes and rhonchi) Gastrointestinal: Yes: Normal Bowel Sounds, Soft Extremities: Yes: WNL Edema: No Labs: CBC, BMP 06/08/17 06:00 06/08/17 06:00 Problem List - Problems (1) Acute hypoxemic respiratory failure Code(s): J96.01 - ACUTE RESPIRATORY FAILURE WITH HYPOXIA (2) Hypercapnia Code(s): R06.89 - OTHER ABNORMALITIES OF BREATHING (3) Hyponatremia Code(s): E87.1 - HYPO-OSMOLALITY AND HYPONATREMIA (4) Polysubstance (including opioids) dependence without physiological dependence Code(s): F19.20 - OTHER PSYCHOACTIVE SUBSTANCE DEPENDENCE, UNCOMPLICATED (5) Tobacco abuse Code(s): Z72.0 - TOBACCO USE (6) Tobacco abuse counseling Code(s): Z71.6 - TOBACCO ABUSE COUNSELING (7) ASHD (arteriosclerotic heart disease) Code(s): I25.10 - ATHSCL HEART DISEASE OF [place] CORONARY ARTERY W/O ANG PCTRS (8) Asthma with COPD with exacerbation Code(s): J44.1 - CHRONIC OBSTRUCTIVE PULMONARY DISEASE W (ACUTE) EXACERBATION J45.901 - UNSPECIFIED ASTHMA WITH (ACUTE) EXACERBATION Assessment/Plan IMP ACUTE HYPOXEMIC RESPIRATORY FAILURE SECONDARY TO COPD/ASTHMA EXACERBATION LIKELY DUE TON INHALATION OF CRACK COCAINE HYPONATREMIA IMPROVING ASHD S/P STENTS HTN POLYSUBSTANCE ABUSE TOBACCO ABUSE PLAN IV STEROIDS START TAPER INHALED BRONCHODILATORS O2 PFTS OUTPATIENT MONITOR MICHELLE PERDOMO DR Problem List - Problems (1) Acute hypoxemic respiratory failure Code(s): J96.01 - ACUTE RESPIRATORY FAILURE WITH HYPOXIA (2) Hypercapnia Code(s): R06.89 - OTHER ABNORMALITIES OF BREATHING (3) Hyponatremia Code(s): E87.1 - HYPO-OSMOLALITY AND HYPONATREMIA (4) Polysubstance (including opioids) dependence without physiological dependence Code(s): F19.20 - OTHER PSYCHOACTIVE SUBSTANCE DEPENDENCE, UNCOMPLICATED (5) Tobacco abuse Code(s): Z72.0 - TOBACCO USE (6) Tobacco abuse counseling Code(s): Z71.6 - TOBACCO ABUSE COUNSELING (7) ASHD (arteriosclerotic heart disease) Code(s): I25.10 - ATHSCL HEART DISEASE OF [place] CORONARY ARTERY W/O ANG PCTRS (8) Asthma with COPD with exacerbation Code(s): J44.1 - CHRONIC OBSTRUCTIVE PULMONARY DISEASE W (ACUTE) EXACERBATION J45.901 - UNSPECIFIED ASTHMA WITH (ACUTE) EXACERBATION
--- NOTE | 2017-06-08 12:00 | PN ---
Teaching Attending Note Name of Resident: Julio Tomas ATTENDING PHYSICIAN STATEMENT I saw and evaluated the patient. I reviewed the resident's note and discussed the case with the resident. I agree with the resident's findings and plan as documented. SUBJECTIVE:conitnues to have cough but not productive. breathing improved. denies Cp, fever, chills, N/V/C/D OBJECTIVE: Last Vital Signs Temp Pulse Resp BP Pulse Ox 97.8 F 76 20 140/89 94 L 06/08/17 09:58 06/08/17 11:41 06/08/17 09:58 06/08/17 09:58 06/08/17 11:41 General NAD Lungs CTA B/L no wheezing/rales/rhonchi ASSESSMENT AND PLAN: 56yo F with PMH CAD s/p stents, asthma, DM, HTN, dyslipidemia and depression presented with acute hypoxic respiratory distres 1. Acute hypoxic respiratory distress- likley acute COPD exacerbation vs irritation from cocaine use. improved. CT chest negative for acute pathology. decrease steroids to 60mg Q8H. nebs standing and prn. pulmonary consulted. supplemental oxygen as needed. 2. Hyponatremia- Corrected Na 132. improving on fluid restriction 3. Hypokalemia- resolved 4. Hypomagnesemia- resolved 5. DM- uncontrolled. A1c 11.6. will give levemir 10 units this AM. then increase tonights dose to usual dose of 30mg. diabetic diet. iss, bgm 6. Acute cocaine withdrawal- mild withdrawal symptoms with agitation. now resolved. evaluated by [facility] will go there for rehab once medically optimized. 7. continuous nicotine dependence- nicotine patch. counseled on risks of smoking including deterioration of overall health including lung disease, cancer and early cardiac 8. HTN- controlled. cont cozaar 9. dyslipidemia- statin 10. depression- no suicidal/homicidal thoughts 11. Acute microcytic anemia- no signs of bleeding. Hgb stable. iron studies pending. no indication for blood transfusion 12. DVT ppx- lovenox
[2017-06-08] MEDS: CLOTRIMAZOLE 1% CREAM 15 GM TUBE TP SCH ×2 (14:21→21:51)
[2017-06-08] MEDS: ATORVASTATIN CA 10 MG TABLET (FP) PO SCH (21:44)
[2017-06-08] MEDS: INSULIN DETEMIR 100 UNITS/ML MDV SQ SCH (21:45)
[2017-06-09 01:07] LABS: ANION GAP 12 (8-16); CALCIUM 9.5 mg/dL (8.5-10.1); CO2 26 mmol/L (21-32)
[2017-06-09 01:10] LABS: GLUCOSE,RANDOM 413 mg/dL (74-106)
[2017-06-09] MEDS: methylPREDNISolone NA SUCC 40 MG/1 ML VIAL IVPB SCH ×3 (01:36→17:11)
[2017-06-09] MEDS: DOCUSATE SODIUM 100 MG CAPSULE (FP) PO SCH ×3 (06:08→22:01)
[2017-06-09] MEDS: INSULIN SLIDING SCALE (NOVOLOG) 1 VIAL SQ SCH ×4 (06:08→23:03)
[2017-06-09] MEDS: ALBUTEROL SO4 2.5/IPRATROPIUM 0.5 INH SOL 3 ML VIAL.NEB. NEB SCH ×2 (06:35→11:00)
[2017-06-09 09:31] LABS: MCHC 30.6 g/dl (32.0-36.0); MEAN CELL VOLUME 64.1 fl (80-96); MEAN PLT VOLUME 7.1 fl (7.5-11.1); PLATELET COUNT 499 K/MM3 (134-434); RDW 17.9 % (11.6-15.6); WHITE BLOOD COUNT 7.5 K/mm3 (4.0-10.0)
[2017-06-09 09:52] LABS: ANION GAP 12 (8-16); CALCIUM 9.4 mg/dL (8.5-10.1); CO2 29 mmol/L (21-32); CREATININE 0.6 mg/dL (0.55-1.02); GLUCOSE,RANDOM 226 mg/dL (74-106); MAGNESIUM 1.5 mg/dL (1.8-2.4); PHOSPHOROUS 3.8 mg/dL (2.5-4.9)
[2017-06-09 09:54] LABS: FERRITIN 15.429 ng/ml (6.9-282.5)
[2017-06-09 10:00] LABS: MCH 19.6 pg (25.7-33.7)
[2017-06-09] MEDS: LOSARTAN POTASSIUM 50 MG TABLET (FP) PO SCH (10:37)
[2017-06-09] MEDS: PREGABALIN 100 MG CAPSULE PO SCH (10:37)
[2017-06-09] MEDS: ENOXAPARIN NA (PORCINE) 40 MG/0.4 ML DISP.SYRIN SQ SCH (10:37)
[2017-06-09] MEDS: POLYETHYLENE GLYCOL 3350 119 GM BTL PO SCH ×2 (10:38→22:02)
[2017-06-09] MEDS: NICOTINE 21 MG/24 HOURS TOPICAL PATCH TD SCH (10:39)
[2017-06-09] MEDS: CLOTRIMAZOLE 1% CREAM 15 GM TUBE TP SCH ×2 (11:48→22:02)
[2017-06-09] MEDS ORDERED: INSULIN (NOVOLOG) ASPART 100 UNITS/ML 10ML VIAL ONE ×2 (11:56→12:15)
--- NOTE | 2017-06-09 12:12 | PN ---
Progress Note, Physician History of Present Illness: pulmonary alert,feeling better,less dyspneic,NA 130 - Current Medication List Current Medications: Active Medications Acetaminophen (Tylenol -) 650 mg PO Q6H PRN PRN Reason: FEVER OR PAIN Last Admin: 06/07/17 05:25 Dose: 650 mg Albuterol/Ipratropium (Duoneb -) 1 amp NEB QIDR [facility] Last Admin: 06/09/17 06:35 Dose: 1 amp Atorvastatin Calcium (Lipitor -) 10 mg PO HS [facility] Last Admin: 06/08/17 21:44 Dose: 10 mg Benzocaine/Menthol (Cepacol Lozenge -) 1 each MM PRN PRN PRN Reason: SORE THROAT Last Admin: 06/08/17 22:54 Dose: 1 each Clotrimazole (Lotrimin 1% Cream -) 1 applic TP BID [facility] Last Admin: 06/09/17 11:48 Dose: Not Given Docusate Sodium (Colace -) 100 mg PO TID [facility] Last Admin: 06/09/17 06:08 Dose: 100 mg Enoxaparin Sodium (Lovenox -) 40 mg SQ DAILY [facility] Last Admin: 06/09/17 10:37 Dose: 40 mg Insulin Aspart (Novolog Vial Sliding Scale -) [address] [facility] PRN Reason: Protocol Last Admin: 06/09/17 06:08 Dose: 4 units Insulin Detemir (Levemir Vial) 30 units SQ [facility] Last Admin: 06/08/17 21:45 Dose: 30 units Losartan Potassium (Cozaar -) 100 mg PO DAILY [facility] Last Admin: 06/09/17 10:37 Dose: 100 mg Methylprednisolone Sodium Succinate (Solu-Medrol -) 60 mg IVPB Q8H-IV [facility] Last Admin: 06/09/17 10:38 Dose: 60 mg Nicotine (Nicoderm Patch -) 21 mg TD DAILY [facility] Last Admin: 06/09/17 10:39 Dose: 21 mg Nitroglycerin (Nitrostat -) 0.4 mg SL Q5M PRN PRN Reason: FOR CHEST PAIN Ondansetron HCl (Zofran Injection) 4 mg IVPB Q6H PRN PRN Reason: NAUSEA Polyethylene Glycol (Miralax (For Daily Use) -) 17 gm PO BID [facility] Last Admin: 06/09/17 10:38 Dose: 17 gm Pregabalin (Lyrica -) 100 mg PO DAILY [facility] Last Admin: 06/09/17 10:37 Dose: 100 mg Simethicone (Mylicon -) 80 mg PO QID PRN PRN Reason: GAS - Objective Vital Signs: Vital Signs Temperature 98.0 F 06/09/17 02:00 Pulse Rate 81 06/09/17 02:00 Respiratory Rate 22 06/09/17 02:00 Blood Pressure 147/76 06/09/17 02:00 O2 Sat by Pulse Oximetry (%) 94 L 06/08/17 21:00 Constitutional: Yes: Calm, Thin Eyes: Yes: WNL HENT: Yes: WNL Neck: Yes: WNL Cardiovascular: Yes: Regular Rate and Rhythm, S1, S2 Respiratory: Yes: Wheezes (few scattered wheezes) Gastrointestinal: Yes: Normal Bowel Sounds, Soft Extremities: Yes: WNL Edema: No Labs: CBC, BMP 06/09/17 08:00 06/09/17 08:00 Problem List - Problems (1) Acute hypoxemic respiratory failure Code(s): J96.01 - ACUTE RESPIRATORY FAILURE WITH HYPOXIA (2) Hypercapnia Code(s): R06.89 - OTHER ABNORMALITIES OF BREATHING (3) Hyponatremia Code(s): E87.1 - HYPO-OSMOLALITY AND HYPONATREMIA (4) Polysubstance (including opioids) dependence without physiological dependence Code(s): F19.20 - OTHER PSYCHOACTIVE SUBSTANCE DEPENDENCE, UNCOMPLICATED (5) Tobacco abuse Code(s): Z72.0 - TOBACCO USE (6) Tobacco abuse counseling Code(s): Z71.6 - TOBACCO ABUSE COUNSELING (7) ASHD (arteriosclerotic heart disease) Code(s): I25.10 - ATHSCL HEART DISEASE OF [place] CORONARY ARTERY W/O ANG PCTRS (8) Asthma with COPD with exacerbation Code(s): J44.1 - CHRONIC OBSTRUCTIVE PULMONARY DISEASE W (ACUTE) EXACERBATION J45.901 - UNSPECIFIED ASTHMA WITH (ACUTE) EXACERBATION Assessment/Plan IMP ACUTE HYPOXEMIC RESPIRATORY FAILURE SECONDARY TO COPD/ASTHMA EXACERBATION LIKELY DUE TON INHALATION OF CRACK COCAINE HYPONATREMIA IMPROVING ASHD S/P STENTS HTN POLYSUBSTANCE ABUSE TOBACCO ABUSE PLAN CONTINUE STEROID TAPER INHALED BRONCHODILATORS O2 PFTS OUTPATIENT MONITOR MICHELLE PERDOMO DR Problem List - Problems (1) Acute hypoxemic respiratory failure Code(s): J96.01 - ACUTE RESPIRATORY FAILURE WITH HYPOXIA (2) Hypercapnia Code(s): R06.89 - OTHER ABNORMALITIES OF BREATHING (3) Hyponatremia Code(s): E87.1 - HYPO-OSMOLALITY AND HYPONATREMIA (4) Polysubstance (including opioids) dependence without physiological dependence Code(s): F19.20 - OTHER PSYCHOACTIVE SUBSTANCE DEPENDENCE, UNCOMPLICATED (5) Tobacco abuse Code(s): Z72.0 - TOBACCO USE (6) Tobacco abuse counseling Code(s): Z71.6 - TOBACCO ABUSE COUNSELING (7) ASHD (arteriosclerotic heart disease) Code(s): I25.10 - ATHSCL HEART DISEASE OF [place] CORONARY ARTERY W/O ANG PCTRS (8) Asthma with COPD with exacerbation Code(s): J44.1 - CHRONIC OBSTRUCTIVE PULMONARY DISEASE W (ACUTE) EXACERBATION J45.901 - UNSPECIFIED ASTHMA WITH (ACUTE) EXACERBATION
[2017-06-09] MEDS ORDERED: ALBUTEROL SO4 0.5 % INH SOLN 2.5 MG/0.5 ML VIAL.NEB. NEB PRN (12:13)
[2017-06-09] MEDS ORDERED: ALBUTEROL SO4 2.5/IPRATROPIUM 0.5 INH SOL 3 ML VIAL.NEB. NEB PRN (13:26)
[2017-06-09] MEDS ORDERED: MAGNESIUM OXIDE 400 MG TABLET (FP) PO ONE (14:28)
--- NOTE | 2017-06-09 14:30 | PN ---
Teaching Attending Note Name of Resident: Julio Tomas ATTENDING PHYSICIAN STATEMENT I saw and evaluated the patient. I reviewed the resident's note and discussed the case with the resident. I agree with the resident's findings and plan as documented. SUBJECTIVE:conitnues to be dyspnic on exertion but overall improved. states cough improved. denies CP, fever, chils, N/V/C/D currently receiving nebulizer treatment OBJECTIVE: Last Vital Signs Temp Pulse Resp BP Pulse Ox 98.0 F 81 22 147/76 94 L 06/09/17 02:00 06/09/17 02:00 06/09/17 02:00 06/09/17 02:00 06/08/17 21:00 General NAD Lungs CTA B/L no wheezing/rales/rhonchi ASSESSMENT AND PLAN: 56yo F with PMH CAD s/p stents, asthma, DM, HTN, dyslipidemia and depression presented with acute hypoxic respiratory distres 1. Acute hypoxic respiratory distress- likley acute COPD exacerbation vs irritation from cocaine use. improved. lungs clear however currently receiving nebulizer treatment. decrease steroids to 40mg Q8H. will make nebs prn only. pulmonary consulted. supplemental oxygen as needed. 2. Hyponatremia- Corrected Na 133. improving on fluid restriction 3. Hypokalemia- resolved 4. Hypomagnesemia- Mg 800mg 5. DM- uncontrolled. A1c 11.6. will give levemir 10 units this AM.cont levemir 30units HS. diabetic diet. iss, bgm 6. Acute cocaine withdrawal- mild withdrawal symptoms with agitation. now resolved. evaluated by [facility] will go there for rehab once medically optimized. 7. continuous nicotine dependence- nicotine patch. counseled on risks of smoking including deterioration of overall health including lung disease, cancer and early cardiac 8. HTN- controlled. cont cozaar 9. dyslipidemia- statin 10. depression- no suicidal/homicidal thoughts 11. Acute microcytic anemia- no signs of bleeding. Hgb stable. iron studies pending. no indication for blood transfusion 12. DVT ppx- lovenox :
[2017-06-09] MEDS: TIOTROPIUM BROMIDE 18 MCG/INH (DEVICE W/ 5 CAPSULES) IH SCH (16:34)
[2017-06-09] MEDS: BUDESONIDE/FORMETEROL FUMARATE 160/4.5 mcg INHALER IH SCH ×2 (16:35→22:01)
[2017-06-09] MEDS: SODIUM PHOSPHATE/NA BIPHOS 133 ML ENEMA PR ONE ×2 (16:36→22:02)
[2017-06-09] MEDS ORDERED: PT OWN MED DRAWER 7, Y5N ONE (16:46)
[2017-06-09] MEDS ORDERED: MAGNESIUM SULF 50% (8.12 MEQ/2 ML-1 GM VIAL) IVPB ONE (16:50)
--- NOTE | 2017-06-09 18:56 | PN ---
Physical Exam: SUBJECTIVE: Patient seen and examined at bed side. No acute events over night. She is doing much better, cough has improved, she denies SOB, fever, chills, N/V /D/C. OBJECTIVE: Vital Signs Period Temp Pulse Resp BP Sys/Reynoso Pulse Ox Last 24 Hr 97.2 F-98.1 F 71-81 18-22 129-188/67-99 94 GENERAL: The patient is awake, alert, and fully oriented, in no acute distress. HEAD: Normal with no signs of trauma. EYES: PERRL, sclera anicteric, conjunctiva clear. No ptosis. ENT: moist mucous membranes. NECK: Trachea midline, full range of motion, supple. LUNGS: Breath sounds equal, clear to auscultation bilaterally, no wheezes, no crackles, no accessory muscle use. HEART: Regular rate and rhythm, S1, S2 without murmur, rub or gallop. ABDOMEN: Soft, nontender, nondistended, normoactive bowel sounds, no guarding, no rebound, no hepatosplenomegaly, no masses. EXTREMITIES: 2+ pulses, warm, well-perfused, no edema. NEUROLOGICAL: Normal speech, gait not observed. PSYCH: Normal mood, normal affect. SKIN: Warm, dry, normal turgor, no rashes or lesions noted Laboratory Results - last 24 hr 06/08/17 06/08/17 06/08/17 06:14 16:35 21:24 WBC RBC Hgb Hct MCV MCH MCHC RDW Plt Count MPV Sodium Potassium Chloride Carbon Dioxide Anion Gap BUN Creatinine POC Glucometer 402 410 438 Random Glucose Calcium Phosphorus Magnesium Ferritin 06/08/17 06/08/17 06/09/17 21:30 21:30 05:36 WBC RBC Hgb Hct MCV MCH MCHC RDW Plt Count MPV Sodium 125 L Potassium 5.5 H Chloride 87 L Carbon Dioxide 26 Anion Gap 12 BUN 20 H D Creatinine 1.0 D POC Glucometer 234 Random Glucose 431 H* 413 H* Calcium 9.5 Phosphorus Magnesium Ferritin 06/09/17 06/09/17 06/09/17 08:00 08:00 08:00 WBC 7.5 RBC 4.95 Hgb 9.7 L Hct 31.8 L MCV 64.1 L MCH 19.6 L MCHC 30.6 L RDW 17.9 H Plt Count 499 H MPV 7.1 L Sodium 130 L Potassium 4.8 Chloride 89 L Carbon Dioxide 29 Anion Gap 12 BUN 19 H Creatinine 0.6 D POC Glucometer Random Glucose 226 H D Calcium 9.4 Phosphorus 3.8 D Magnesium 1.5 L Ferritin 15.429 06/09/17 06/09/17 12:09 16:42 WBC RBC Hgb Hct MCV MCH MCHC RDW Plt Count MPV Sodium Potassium Chloride Carbon Dioxide Anion Gap BUN Creatinine POC Glucometer 388 278 Random Glucose Calcium Phosphorus Magnesium Ferritin Active Medications Generic Name Dose Route Start Last Admin Trade Name Freq PRN Reason Stop Dose Admin Acetaminophen 650 mg 06/07/17 04:30 06/07/17 05:25 Tylenol - PO 650 mg Q6H PRN Administration FEVER OR PAIN Albuterol Sulfate 1 amp 06/09/17 12:13 Ventolin 0.5% - NEB Q4H PRN SHORT OF BREATH/WHEEZING Albuterol/Ipratropium 1 amp 06/09/17 13:26 Duoneb - NEB Q4H PRN Dyspnea Atorvastatin Calcium 10 mg 06/07/17 22:00 06/08/17 21:44 Lipitor - PO 10 mg HS MANJEET Administration Benzocaine/Menthol 1 each 06/07/17 01:37 06/08/17 22:54 Cepacol Lozenge - MM 1 each PRN PRN Administration SORE THROAT Budesonide/Formoterol Fumarate 2 puff 06/09/17 12:15 06/09/17 16:35 Symbicort 160/4.5mcg - IH 2 puff BID MANJEET Administration Clotrimazole 1 applic 06/08/17 11:30 06/09/17 11:48 Lotrimin 1% Cream - TP Not Given BID MANJEET Docusate Sodium 100 mg 06/07/17 06:00 06/09/17 14:19 Colace - PO 100 mg TID MANJEET Administration Enoxaparin Sodium 40 mg 06/07/17 11:15 06/09/17 10:37 Lovenox - SQ 40 mg DAILY MANJEET Administration Insulin Aspart 1 vial 06/06/17 22:00 06/09/17 17:12 Novolog Vial Sliding Scale - SQ 6 units ACHS MANJEET Administration Protocol Insulin Detemir 30 units 06/08/17 22:00 06/08/17 21:45 Levemir Vial SQ 30 units HS MANJEET Administration Methylprednisolone Sodium Succinate 40 mg 06/09/17 12:14 06/09/17 17:11 Solu-Medrol - IVPB 40 mg Q8H-IV MANJEET Administration Nicotine 21 mg 06/06/17 21:15 06/09/17 10:39 Nicoderm Patch - TD 21 mg DAILY MANJEET Administration Nitroglycerin 0.4 mg 06/06/17 21:05 Nitrostat - SL Q5M PRN FOR CHEST PAIN Ondansetron HCl 4 mg 06/06/17 19:49 Zofran Injection IVPB Q6H PRN NAUSEA Polyethylene Glycol 17 gm 06/07/17 10:00 06/09/17 10:38 Miralax (For Daily Use) - PO 17 gm BID MANJEET Administration Pregabalin 100 mg 06/07/17 10:00 06/09/17 10:37 Lyrica - PO 100 mg DAILY MANJEET Administration Senna 2 tab 06/09/17 22:00 Senna - PO HS MANJEET Simethicone 80 mg 06/06/17 21:05 Mylicon - PO QID PRN GAS Tiotropium [place] 1 puff 06/09/17 12:15 06/09/17 16:34 Spiriva - IH 1 puff DAILY MANJEET Administration CBC, BMP 06/09/17 08:00 06/09/17 08:00 ASSESSMENT/PLAN: 56 yo F with significant PMHx of crack use, asthma, CAD(s/p stentsx2),DM, HTN, and HLD admitted for acute hypoxic hypercapnic respiratory failure with hyponatremia. # Acute hypoxemic respiratory failure * Acute asthma exacerbation ER peak flow 150 * Pulmonary consult appreciated - Dr. Youssef * Started on Solumedrol 60mg IV Q8H * Supplemental O2 via NC to maintain SpO2 @ 90% - caution not to aim for 100% as this could worsen v/q mismatch. * Duonebs QID and albuterol PRN * Incentive spirometer. * CT shows no acute pathology * consider taper medrol * Consider PFTs as out patient * decrease steroids to 40mg Q8H. will make nebs prn only # Hypercapnia * refer to acute respiratory failure above for management. * Caution not to aim for higher O2 sat as she is most likely a chronic retainer and this could worsen V/Q mismatch. * repeat ABG in AM # Hyponatremia, corrected * corrected NA 132 * SIADH v. psychogenic polydypsia * Ordered Urine lytes and Urine Na to assess FeNa * Serum osmolarity pending * Fluid restriction 1L for 24hrs. * Repeat BMP in AM #Acute cocaine withdrawal * mild withdrawal symptoms with agitation. * one dose of ativan was given * consult Detox as pt is interested in rehab and sobriety. * counseled on risks of continued use including worsening lungs symptoms and cardiac arrest # Hypokalemia, resolved * replenished with IV and PO * repeat BMP in AM * Will also replenish Mg. # Hypomagnesemia, resolved * Mg 1.g * MG 800 PO , repeat MG AM * Replete with IV and PO Mag. * Will repeat Mg in AM # Diabetes mellitus, Uncontrolled * HgbA1c 11.6 * Blood glucose 226 today * Has not take diabetic medication in 6 mo. * Held oral hypogylcemics * continue Levemir to 30 U HS * was given 10 units levemir AM * Novolog ISS ACHS * BGM ACHS * Diabetic diet. * educate the patient about compliant with medicine and diet and the complications # CAD (coronary artery disease) * Continue statin 10 mg po HS * Continue Nitro 0.4 SL PRN for chest pain (angina ) # HTN (hypertension) * BP 147/78 * Will continue Losartan 100mg PO daily #Crack cocaine use * She was at [facility] for detox of crack use which most likely triggered acute exacerbation. * Will monitor for excessive somnolence or suicidal ideation. # Depression : * No suicidal or homicidal ideation * Monitor clinically # Tobacco abuse * 21mg nicotine patch. * Patient counselling # DVT prophylaxis * SCD's bilateral lower ext. * Start Lovenox 40 SQ daily Case was discussed with the attending physician and the medical team. Julio Tomas PGY 1 MD Visit type - Emergency Visit Emergency Visit: Yes ED Registration Date: 06/06/17 Care time: The patient presented to the Emergency Department on the above date and was hospitalized for further evaluation of their emergent condition. - New Patient This patient is new to me today: No - Critical Care Critical Care patient: No
[2017-06-09] MEDS ORDERED: SENNOSIDES 8.6MG TABLET (FP) PO SCH (22:00)
[2017-06-09] MEDS: ATORVASTATIN CA 10 MG TABLET (FP) PO SCH (22:02)
[2017-06-09] MEDS: INSULIN DETEMIR 100 UNITS/ML MDV SQ SCH (23:04)
[2017-06-09 23:48] LABS: ANION GAP 12 (8-16); CALCIUM 8.8 mg/dL (8.5-10.1); CO2 27 mmol/L (21-32); CREATININE 0.9 mg/dL (0.55-1.02)
[2017-06-09 23:49] LABS: GLUCOSE,RANDOM 443 mg/dL (74-106)
[2017-06-10] MEDS ORDERED: CALAMINE 8% TOPICAL LOTION 177 ML BOTTLE TP PRN (02:02)
--- NOTE | 2017-06-10 02:07 | HOSP ---
Physical Examination Vital Signs: Vital Signs Temperature 98.0 F 06/09/17 18:25 Pulse Rate 71 06/09/17 18:25 Respiratory Rate 20 06/09/17 18:25 Blood Pressure 188/99 06/09/17 18:25 O2 Sat by Pulse Oximetry (%) 94 L 06/08/17 21:00 Labs: CBC, BMP 06/09/17 08:00 06/09/17 22:50 Hospitalist Encounter Assessment: Patient's BMP @ 2300 revealed hyponatremia. Corrected sodium of 130. Glucose of 443. Patient given insulin 12 units and levemir 30 units. Patient will be monitored closely. Visit type - Emergency Visit Emergency Visit: Yes ED Registration Date: 06/06/17 Care time: The patient presented to the Emergency Department on the above date and was hospitalized for further evaluation of their emergent condition. - New Patient This patient is new to me today: Yes Date on this admission: 06/10/17 - Critical Care Critical Care patient: No
[2017-06-10] MEDS: methylPREDNISolone NA SUCC 40 MG/1 ML VIAL IVPB SCH ×2 (02:14→09:15)
[2017-06-10] MEDS: DOCUSATE SODIUM 100 MG CAPSULE (FP) PO SCH ×2 (06:37→16:23)
[2017-06-10] MEDS: INSULIN SLIDING SCALE (NOVOLOG) 1 VIAL SQ SCH ×2 (06:39→12:16)
[2017-06-10 08:05] LABS: MCHC 30.6 g/dl (32.0-36.0); MEAN CELL VOLUME 63.8 fl (80-96); PLATELET COUNT 506 K/MM3 (134-434); RDW 18.2 % (11.6-15.6); WHITE BLOOD COUNT 7.7 K/mm3 (4.0-10.0)
[2017-06-10 08:11] LABS: MCH 19.5 pg (25.7-33.7)
[2017-06-10] MEDS ORDERED: PT OWN MED DRAWER 7, Y5N ONE ×2 (09:09→16:24)
[2017-06-10 09:10] LABS: ANION GAP 10 (8-16); CALCIUM 9.4 mg/dL (8.5-10.1); CO2 29 mmol/L (21-32); CREATININE 0.7 mg/dL (0.55-1.02); GLUCOSE,RANDOM 199 mg/dL (74-106); MAGNESIUM 1.5 mg/dL (1.8-2.4)
[2017-06-10] MEDS: PREGABALIN 100 MG CAPSULE PO SCH (09:14)
[2017-06-10] MEDS: CLOTRIMAZOLE 1% CREAM 15 GM TUBE TP SCH (09:15)
[2017-06-10] MEDS: ENOXAPARIN NA (PORCINE) 40 MG/0.4 ML DISP.SYRIN SQ SCH (09:15)
[2017-06-10] MEDS: POLYETHYLENE GLYCOL 3350 119 GM BTL PO SCH (09:16)
[2017-06-10] MEDS: TIOTROPIUM BROMIDE 18 MCG/INH (DEVICE W/ 5 CAPSULES) IH SCH (09:16)
[2017-06-10] MEDS: NICOTINE 21 MG/24 HOURS TOPICAL PATCH TD SCH (09:16)
[2017-06-10] MEDS: BUDESONIDE/FORMETEROL FUMARATE 160/4.5 mcg INHALER IH SCH (09:17)
--- NOTE | 2017-06-10 10:59 | PN ---
Progress Note (short form) - Note Progress Note: Reports that breathing feels overall better. Comfortable on RA. Reports that she is ambulating in the hallway without symptoms. Intake & Output 06/07/17 06/08/17 06/09/17 06/10/17 23:59 23:59 23:59 23:59 Intake Total 1540 1060 810 150 Balance 1540 1060 810 150 Last Vital Signs Temp Pulse Resp BP Pulse Ox 98.5 F 80 20 134/66 95 06/10/17 06:00 06/10/17 10:00 06/10/17 10:00 06/10/17 10:00 06/09/17 22:00 Active Medications Acetaminophen (Tylenol -) 650 mg PO Q6H PRN PRN Reason: FEVER OR PAIN Last Admin: 06/07/17 05:25 Dose: 650 mg Albuterol Sulfate (Ventolin 0.5% -) 1 amp NEB Q4H PRN PRN Reason: SHORT OF BREATH/WHEEZING Albuterol/Ipratropium (Duoneb -) 1 amp NEB Q4H PRN PRN Reason: Dyspnea Atorvastatin Calcium (Lipitor -) 10 mg PO HS [facility] Last Admin: 06/09/17 22:02 Dose: 10 mg Benzocaine/Menthol (Cepacol Lozenge -) 1 each MM PRN PRN PRN Reason: SORE THROAT Last Admin: 06/08/17 22:54 Dose: 1 each Budesonide/Formoterol Fumarate (Symbicort 160/4.5mcg -) 2 puff IH BID [facility] Last Admin: 06/10/17 09:17 Dose: 2 puff Calamine (Calamine 8% Topical Lotion -) 1 applic TP DAILY PRN PRN Reason: FOR ITCHING Last Admin: 06/10/17 02:15 Dose: 1 applic Clotrimazole (Lotrimin 1% Cream -) 1 applic TP BID [facility] Last Admin: 06/10/17 09:15 Dose: 1 applic Docusate Sodium (Colace -) 100 mg PO TID [facility] Last Admin: 06/10/17 06:37 Dose: 100 mg Enoxaparin Sodium (Lovenox -) 40 mg SQ DAILY [facility] Last Admin: 06/10/17 09:15 Dose: 40 mg Insulin Aspart (Novolog Vial Sliding Scale -) 1 vial SQ ACHS [facility] PRN Reason: Protocol Last Admin: 06/10/17 06:39 Dose: 10 units Insulin Detemir (Levemir Vial) 30 units SQ HS [facility] Last Admin: 06/09/17 23:04 Dose: 30 units Methylprednisolone Sodium Succinate (Solu-Medrol -) 40 mg IVPB Q8H-IV [facility] Last Admin: 06/10/17 09:15 Dose: 40 mg Nicotine (Nicoderm Patch -) 21 mg TD DAILY [facility] Last Admin: 06/10/17 09:16 Dose: 21 mg Nitroglycerin (Nitrostat -) 0.4 mg SL Q5M PRN PRN Reason: FOR CHEST PAIN Ondansetron HCl (Zofran Injection) 4 mg IVPB Q6H PRN PRN Reason: NAUSEA Polyethylene Glycol (Miralax (For Daily Use) -) 17 gm PO BID [facility] Last Admin: 06/10/17 09:16 Dose: 17 gm Pregabalin (Lyrica -) 100 mg PO DAILY [facility] Last Admin: 06/10/17 09:14 Dose: 100 mg Senna (Senna -) 2 tab PO [facility] Last Admin: 06/09/17 22:01 Dose: 2 tab Simethicone (Mylicon -) 80 mg PO QID PRN PRN Reason: GAS Tiotropium [place] (Spiriva -) 1 puff IH DAILY [facility] Last Admin: 06/10/17 09:16 Dose: 1 puff Constitutional: Yes: NAD Eyes: Yes: WNL HENT: Yes: WNL Neck: Yes: WNL Cardiovascular: Yes: Regular Rate and Rhythm, S1, S2 Respiratory: Yes: Clear, no wheezes Gastrointestinal: Yes: Normal Bowel Sounds, Soft Extremities: Yes: WNL Edema: No Labs: Laboratory Results - last 24 hr 06/09/17 06/09/17 06/09/17 12:09 16:42 22:07 WBC RBC Hgb Hct MCV MCH MCHC RDW Plt Count MPV Sodium Potassium Chloride Carbon Dioxide Anion Gap BUN Creatinine POC Glucometer 388 278 446 Random Glucose Calcium Magnesium Stool Occult Blood 06/09/17 06/09/17 06/10/17 22:50 22:55 06:38 WBC RBC Hgb Hct MCV MCH MCHC RDW Plt Count MPV Sodium 125 L Potassium 5.3 H Chloride 86 L Carbon Dioxide 27 Anion Gap 12 BUN 21 H Creatinine 0.9 D POC Glucometer 377 Random Glucose 443 H* D Calcium 8.8 Magnesium Stool Occult Blood Negative 06/10/17 06/10/17 06/10/17 07:20 07:20 07:20 WBC 7.7 RBC 5.13 Hgb 10.0 L Hct 32.7 MCV 63.8 L MCH 19.5 L MCHC 30.6 L RDW 18.2 H Plt Count 506 H MPV 7.0 L Sodium 127 L Cancelled Potassium 4.4 Cancelled Chloride 88 L Cancelled Carbon Dioxide 29 Cancelled Anion Gap 10 Cancelled BUN 20 H Cancelled Creatinine 0.7 D Cancelled POC Glucometer Random Glucose 199 H D Cancelled Calcium 9.4 Cancelled Magnesium 1.5 L Stool Occult Blood Problem List - Problems (1) Acute hypoxemic respiratory failure Code(s): J96.01 - ACUTE RESPIRATORY FAILURE WITH HYPOXIA (2) Hypercapnia Code(s): R06.89 - OTHER ABNORMALITIES OF BREATHING (3) Hyponatremia Code(s): E87.1 - HYPO-OSMOLALITY AND HYPONATREMIA (4) Polysubstance (including opioids) dependence without physiological dependence Code(s): F19.20 - OTHER PSYCHOACTIVE SUBSTANCE DEPENDENCE, UNCOMPLICATED (5) Tobacco abuse Code(s): Z72.0 - TOBACCO USE (6) Tobacco abuse counseling Code(s): Z71.6 - TOBACCO ABUSE COUNSELING (7) ASHD (arteriosclerotic heart disease) Code(s): I25.10 - ATHSCL HEART DISEASE OF [place] CORONARY ARTERY W/O ANG PCTRS (8) Asthma with COPD with exacerbation Code(s): J44.1 - CHRONIC OBSTRUCTIVE PULMONARY DISEASE W (ACUTE) EXACERBATION J45.901 - UNSPECIFIED ASTHMA WITH (ACUTE) EXACERBATION Assessment/Plan IMP ACUTE HYPOXEMIC RESPIRATORY FAILURE SECONDARY TO COPD/ASTHMA EXACERBATION LIKELY DUE TON INHALATION OF CRACK COCAINE HYPONATREMIA IMPROVING ASHD S/P STENTS HTN POLYSUBSTANCE ABUSE TOBACCO ABUSE PLAN CHANGE TO SHORT PREDNISONE COURSE INHALED BRONCHODILATORS O2 PFTS OUTPATIENT NO TOBACCO SMOKING / ILLICIT SUBSTANCES COUNSELED DR PALM
[2017-06-10] MEDS ORDERED: predniSONE 20 MG TABLET (UD) PO SCH (11:00)
--- NOTE | 2017-06-10 11:32 | MSN ---
Progress Note (SOAP) - Subjective Chief Complaint: Shortness of breath History of Present Illness: Night team was called for patient with hyponatremia and hyperglycemia. Corrected sodium was only mildly abnormal and pt has had chronic hyperglycemia. Today, pt states that she is feeling much better. No longer short of breath, no cough, fevers, chest pain, dizziness, lightheadedness, or any other complaints. She states she feels like she is back at baseline and is ready to return to [facility]. - Current Medications Current Medications: Active Medications Acetaminophen (Tylenol -) 650 mg PO Q6H PRN PRN Reason: FEVER OR PAIN Last Admin: 06/07/17 05:25 Dose: 650 mg Albuterol Sulfate (Ventolin 0.5% -) 1 amp NEB Q4H PRN PRN Reason: SHORT OF BREATH/WHEEZING Atorvastatin Calcium (Lipitor -) 10 mg PO HS [facility] Last Admin: 06/09/17 22:02 Dose: 10 mg Benzocaine/Menthol (Cepacol Lozenge -) 1 each MM PRN PRN PRN Reason: SORE THROAT Last Admin: 06/08/17 22:54 Dose: 1 each Budesonide/Formoterol Fumarate (Symbicort 160/4.5mcg -) 2 puff IH BID [facility] Last Admin: 06/10/17 09:17 Dose: 2 puff Calamine (Calamine 8% Topical Lotion -) 1 applic TP DAILY PRN PRN Reason: FOR ITCHING Last Admin: 06/10/17 02:15 Dose: 1 applic Clotrimazole (Lotrimin 1% Cream -) 1 applic TP BID [facility] Last Admin: 06/10/17 09:15 Dose: 1 applic Docusate Sodium (Colace -) 100 mg PO TID [facility] Last Admin: 06/10/17 06:37 Dose: 100 mg Enoxaparin Sodium (Lovenox -) 40 mg SQ DAILY [facility] Last Admin: 06/10/17 09:15 Dose: 40 mg Insulin Aspart (Novolog Vial Sliding Scale -) 1 vial SQ ACHS [facility] PRN Reason: Protocol Last Admin: 06/10/17 06:39 Dose: 10 units Insulin Detemir (Levemir Vial) 30 units SQ HS [facility] Last Admin: 06/09/17 23:04 Dose: 30 units Nicotine (Nicoderm Patch -) 21 mg TD DAILY [facility] Last Admin: 06/10/17 09:16 Dose: 21 mg Nitroglycerin (Nitrostat -) 0.4 mg SL Q5M PRN PRN Reason: FOR CHEST PAIN Ondansetron HCl (Zofran Injection) 4 mg IVPB Q6H PRN PRN Reason: NAUSEA Polyethylene Glycol (Miralax (For Daily Use) -) 17 gm PO BID [facility] Last Admin: 06/10/17 09:16 Dose: 17 gm Prednisone (Deltasone -) 40 mg PO DAILY [facility] Stop: 06/13/17 10:01 Pregabalin (Lyrica -) 100 mg PO DAILY [facility] Last Admin: 06/10/17 09:14 Dose: 100 mg Senna (Senna -) 2 tab PO HS [facility] Last Admin: 06/09/17 22:01 Dose: 2 tab Simethicone (Mylicon -) 80 mg PO QID PRN PRN Reason: GAS Tiotropium [place] (Spiriva -) 1 puff IH DAILY [facility] Last Admin: 06/10/17 09:16 Dose: 1 puff - Objective Vital Signs: Vital Signs Temperature 98.5 F 06/10/17 06:00 Pulse Rate 80 06/10/17 10:00 Respiratory Rate 20 06/10/17 10:00 Blood Pressure 134/66 06/10/17 10:00 O2 Sat by Pulse Oximetry (%) 95 06/09/17 22:00 Constitutional: Yes: No Distress, Calm, Thin Eyes: Yes: WNL, Conjunctiva Clear, EOM Intact HENT: Yes: WNL, Atraumatic, Normocephalic Neck: Yes: WNL, Supple, Trachea Midline Cardiovascular: Yes: WNL, Regular Rate and Rhythm Respiratory: Yes: Regular, Other (Mild bibasilar wheezing) Gastrointestinal: Yes: WNL, Normal Bowel Sounds, Soft Musculoskeletal: Yes: WNL Extremities: Yes: WNL Peripheral Pulses WNL: Yes Integumentary: Yes: WNL Neurological: Yes: WNL, Alert, Oriented ...Motor Strength: Yes: WNL Labs Lab Results: CBC, BMP 06/10/17 07:20 06/10/17 07:20 Assessment/Plan 1. Acute hypoxic respiratory distress - Likely acute COPD exacerbation vs irritation from cocaine use. - Resolved. Satting 97% on RA today with no inhalers needed. Agustin recommends switching from IV steroid taper to short course of prednisone. OK for discharge today. - Pulmonary follow up. 2. Hyponatremia - Corrected Na 130. Improving on fluid restriction 3. Hypokalemia - Resolved 4. Hypomagnesemia - Mg 1.5 today. Give Mg 800mg. 5. DM - Uncontrolled. BG's in 400's here, but patient is on steroids. - Giving levemir 30units HS. Diabetic diet. ISS, BGM - Will not increase home medication, as patient has not been using it. 6. Acute cocaine withdrawal - mild withdrawal symptoms with agitation. now resolved. evaluated by [facility] will go there for rehab once medically optimized. 7. Continuous nicotine dependence- nicotine patch. counseled on risks of smoking including deterioration of overall health including lung disease, cancer and early cardiac 8. HTN- controlled. cont cozaar 9. dyslipidemia- statin 10. depression- no suicidal/homicidal thoughts 11. Acute microcytic anemia - No signs of bleeding. Hgb stable. - Iron studies support iron deficiency. Pt prescribed iron at home, but has not been taking home meds. No indication for blood transfusion 12. DVT ppx- lovenox
--- NOTE | 2017-06-10 11:52 | DS ---
Physical Exam: SUBJECTIVE: Patient seen and examined at bed side. No acute events over night , She is doing much better, Cough has improved. She denies any fever, chills, chest pain, palpitations, N/V/D/C. OBJECTIVE: Vital Signs Period Temp Pulse Resp BP Sys/Reynoso Pulse Ox Last 24 Hr 98.0 F-98.7 F 64-80 18-22 134-188/66-99 95 PHYSICAL EXAM GENERAL: The patient is awake, alert, and fully oriented, in no acute distress. HEAD: Normal with no signs of trauma. EYES: PERRL, sclera anicteric, conjunctiva clear. ENT: Ears normal, nares patent, oropharynx clear without exudates, moist mucous membranes. NECK: Trachea midline, full range of motion, supple. LUNGS: Breath sounds equal, clear to auscultation bilaterally, no wheezes, no crackles, no accessory muscle use. HEART: Regular rate and rhythm, S1, S2 without murmur, rub or gallop. ABDOMEN: Soft, nontender, nondistended, normoactive bowel sounds, no guarding, no rebound, no hepatosplenomegaly, no masses. EXTREMITIES: 2+ pulses, warm, well-perfused, no edema. NEUROLOGICAL: Normal speech, gait not observed. PSYCH: Normal mood, normal affect. SKIN: Warm, dry, normal turgor, no rashes or lesions noted. LABS Laboratory Results - last 24 hr 06/09/17 06/09/17 06/09/17 12:09 16:42 22:07 WBC RBC Hgb Hct MCV MCH MCHC RDW Plt Count MPV Sodium Potassium Chloride Carbon Dioxide Anion Gap BUN Creatinine POC Glucometer 388 278 446 Random Glucose Calcium Magnesium Stool Occult Blood 06/09/17 06/09/17 06/10/17 22:50 22:55 06:38 WBC RBC Hgb Hct MCV MCH MCHC RDW Plt Count MPV Sodium 125 L Potassium 5.3 H Chloride 86 L Carbon Dioxide 27 Anion Gap 12 BUN 21 H Creatinine 0.9 D POC Glucometer 377 Random Glucose 443 H* D Calcium 8.8 Magnesium Stool Occult Blood Negative 06/10/17 06/10/17 06/10/17 07:20 07:20 07:20 WBC 7.7 RBC 5.13 Hgb 10.0 L Hct 32.7 MCV 63.8 L MCH 19.5 L MCHC 30.6 L RDW 18.2 H Plt Count 506 H MPV 7.0 L Sodium 127 L Cancelled Potassium 4.4 Cancelled Chloride 88 L Cancelled Carbon Dioxide 29 Cancelled Anion Gap 10 Cancelled BUN 20 H Cancelled Creatinine 0.7 D Cancelled POC Glucometer Random Glucose 199 H D Cancelled Calcium 9.4 Cancelled Magnesium 1.5 L Stool Occult Blood HOSPITAL COURSE: Date of Admission:06/06/17 Date of Discharge: 06/10/17 56 yo F with significant PMHx of crack use, asthma, CAD(s/p stentsx2),DM, HTN, and HLD admitted for acute hypoxic hypercapnic respiratory failure with hyponatremia. She was found to have acute asthma exacerbation which was treated with Solumedrol 60 mg IV Q8H , supplemental O2 , duoneb QID and Albuterol PRN, and incentive spirometry. Ct scan did not show any acute pathology. Her symptoms improved and will taper her pridnisone to 40 mg Q8H and will go to [facility] with 40 po daily . duoneb will switch to PRN. she developed Hyponatremia was corrected , hypokalemia and hypomagnesemia was replenished. Her diabetic wa not well controlled she is uncompliant with her medicine, Her HgbA1c is 11.6 her blood GLU runs in 400 due to steroids use . she received 30 unit levemir at bed time with sliding scale. Will continue Losartan 100mg PO daily for HTN, Continue statin 10 mg po for hyperlipidimia, Nitro 0.4 SL PRN for cheat pain. 21 mg Nicotine match for nicotine withdrawal. Patient is tolerating the crack cocaine withdrawal, Ativan was used one time, otherwise she is doing great . She is discharged to [facility]. Patient needs to take her medicine as prescribed. Please avoid using drugs or alcohol. if she develop fever, chills , shortness of breath ,please call your primary care physician or come back to the ER. Minutes to complete discharge: 30 Discharge Summary Reason For Visit: ASTHMA; COPD; HYPONATREMIA; HYPOKALEMIA Current Active Problems Acute hypoxemic respiratory failure (Acute) Asthma with COPD with exacerbation (Acute) DVT prophylaxis (Acute) Hypercapnia (Acute) Hypokalemia (Acute) Hypomagnesemia (Acute) Hyponatremia (Acute) Tobacco abuse counseling (Acute) ASHD (arteriosclerotic heart disease) (Chronic) CAD (coronary artery disease) (Chronic) Crack cocaine use (Chronic) Diabetes mellitus (Chronic) HTN (hypertension) (Chronic) Polysubstance (including opioids) dependence without physiological dependence ( Chronic) Tobacco abuse (Chronic) Tobacco dependence (Chronic) Condition: Stable - Instructions Diet, Activity, Other Instructions: You have been treated for an asthma exacerbation. Please use your inhalers as directed. You have been started on two new ones. Symbicort you will take 2 puffs twice a day morning and night. The Spiriva is just one puff once a day in the morning. These are daily inhalers you need to take everyday not just the days that your breathing is bad. It is very important to control your blood sugar. Make sure you are checking you blood sugars in the morning and before meals keeping a log to show to your primary doctor. Resume your Lantus insulin at 30 units per night and your metformin daily. Resume your other medications as previously directed as well. It is vital that you continue with your drug detox and stop smoking crack as this can pose a significant health risk. You will receive a 4 more days of Prednisone 40mg taken by mouth to help with you breathing, please take as directed and complete the course. Try to avoid drinking excessive amounts of water without eating as this can cause unhealthy changes in your electrolytes. Resume a diabetic ,heart healthy diet. Please continue your IRon and Magnesium supplement. Increase activity as tolerated. Please follow up with Dr. Youssef ([employer] Doctor) in one week, as well as your primary doctor in one week. If you breathing worsens or you develop fever/chills please return to ER immediately. Referrals: Shayne Youssef MD [Staff Physician] - Prince Chang MD [Primary Care Provider] - Disposition: HOME - Home Medications Comprehensive Discharge Medication List: Ambulatory Orders Albuterol Sulfate Inhaler - [Ventolin HFA Inhaler -] 1 - 2 inh PO Q4H 06/06/17 Ferrous Sulfate 325 mg PO DAILY 06/06/17 Fluoxetine HCl 20 mg PO DAILY 06/06/17 Glyburide 5 mg PO DAILY 06/06/17 Insulin Glargine,Hum.rec.anlog [Lantus (10mL VIAL) -] 30 units SQ HS 06/06/17 Losartan Potassium 100 mg PO DAILY 06/06/17 Metformin HCl [Metformin HCl ER] 1,000 mg PO DAILY 06/06/17 Nitroglycerin Sublingual 0.4 mg SL Q5M PRN 06/06/17 Pregabalin [Lyrica] 100 mg PO DAILY 06/06/17 Simvastatin 40 mg PO DAILY 06/06/17 Trazodone HCl 50 mg PO DAILY 06/06/17 Budesonide/Formeterol Fumarate [SYMBICORT 160/4.5mcg -] 2 puff IH BID #1 inhaler 06/10/17 Calamine 8% Topical Lotion - 1 applic TP DAILY PRN #0 bottle 06/10/17 Nicotine Patch [Nicoderm Patch -] 21 mg TD DAILY patch 06/10/17 Tiotropium Hercules [Spiriva] 1 puff IH DAILY #1 inh 06/10/17 This patient is new to me today: No Emergency Visit: Yes ED Registration Date: 06/06/17 Care time: The patient presented to the Emergency Department on the above date and was hospitalized for further evaluation of their emergent condition. Critical Care patient: No - Discharge Referral Referred to [facility] Med P.C.: No
[2017-06-10] MEDS ORDERED: INSULIN (NOVOLOG) ASPART 100 UNITS/ML 10ML VIAL ONE (11:59)
[2017-06-10] MEDS ORDERED: diphenhydrAMINE HCL 25 MG CAPSULE (FP) PO ONE (13:00)
--- NOTE | 2017-06-10 13:10 | PN ---
Teaching Attending Note Name of Resident: Julio Tomas ATTENDING PHYSICIAN STATEMENT I saw and evaluated the patient. I reviewed the resident's note and discussed the case with the resident. I agree with the resident's findings and plan as documented. SUBJECTIVE: Patient feels better. She denies SOB. OBJECTIVE: Vital Signs Period Temp Pulse Resp BP Sys/Reynoso Pulse Ox Last 24 Hr 98.0 F-98.7 F 64-80 18-22 134-188/66-99 95 HEART: S1S2, RRR LUNGS: Clear ABDOMEN: Soft, non-tender, non-distended, normal BS EXTREMITIES: No edema Current Medications Generic Name Dose Route Start Last Admin Trade Name Freq PRN Reason Stop Dose Admin Acetaminophen 650 mg 06/07/17 04:30 06/07/17 05:25 Tylenol - PO 650 mg Q6H PRN Administration FEVER OR PAIN Albuterol Sulfate 1 amp 06/09/17 12:13 Ventolin 0.5% - NEB Q4H PRN SHORT OF BREATH/WHEEZING Atorvastatin Calcium 10 mg 06/07/17 22:00 06/09/17 22:02 Lipitor - PO 10 mg HS MANJEET Administration Benzocaine/Menthol 1 each 06/07/17 01:37 06/08/17 22:54 Cepacol Lozenge - MM 1 each PRN PRN Administration SORE THROAT Budesonide/Formoterol Fumarate 2 puff 06/09/17 12:15 06/10/17 09:17 Symbicort 160/4.5mcg - IH 2 puff BID MANJEET Administration Calamine 1 applic 06/10/17 02:02 06/10/17 02:15 Calamine 8% Topical Lotion - TP 1 applic DAILY PRN Administration FOR ITCHING Clotrimazole 1 applic 06/08/17 11:30 06/10/17 09:15 Lotrimin 1% Cream - TP 1 applic BID MANJEET Administration Diphenhydramine HCl 25 mg 06/10/17 11:51 Benadryl - PO 06/10/17 11:52 ONCE ONE Docusate Sodium 100 mg 06/07/17 06:00 06/10/17 06:37 Colace - PO 100 mg TID MANJEET Administration Enoxaparin Sodium 40 mg 06/07/17 11:15 06/10/17 09:15 Lovenox - SQ 40 mg DAILY MANJEET Administration Insulin Aspart 1 vial 06/06/17 22:00 06/10/17 12:16 Novolog Vial Sliding Scale - SQ 10 units ACHS MANJEET Administration Protocol Insulin Detemir 30 units 06/08/17 22:00 06/09/17 23:04 Levemir Vial SQ 30 units HS MANJEET Administration Nicotine 21 mg 06/06/17 21:15 06/10/17 09:16 Nicoderm Patch - TD 21 mg DAILY MANJEET Administration Nitroglycerin 0.4 mg 06/06/17 21:05 Nitrostat - SL Q5M PRN FOR CHEST PAIN Ondansetron HCl 4 mg 06/06/17 19:49 Zofran Injection IVPB Q6H PRN NAUSEA Polyethylene Glycol 17 gm 06/07/17 10:00 06/10/17 09:16 Miralax (For Daily Use) - PO 17 gm BID MANJEET Administration Prednisone 40 mg 06/10/17 11:00 Deltasone - PO 06/13/17 10:01 DAILY MANJEET Pregabalin 100 mg 06/07/17 10:00 06/10/17 09:14 Lyrica - PO 100 mg DAILY MANJEET Administration Senna 2 tab 06/09/17 22:00 06/09/17 22:01 Senna - PO 2 tab HS MANJEET Administration Simethicone 80 mg 06/06/17 21:05 Mylicon - PO QID PRN GAS Tiotropium Dawes 1 puff 06/09/17 12:15 06/10/17 09:16 Spiriva - IH 1 puff DAILY MANJEET Administration ASSESSMENT AND PLAN: This is a 56 year old woman with a history of CAD, stents, asthma, type 2 DM, HTN, hyperlipidemia, depression, substance abuse who presented to the ER from [facility] with shortness of breath and hypoxia. 1. Acute hypoxic respiratory failure - Resolved 2. Asthma exacerbation from inhaling crack - On Prednisone, Symbicort, Spiriva, Albuterol as needed 3. Probable chronic hypercapnic respiratory failure 4. CAD, history of stents 5. HTN - Continue Cozaar 6. Hyperlipidemia - Continue Lipitor 7. Type 2 DM, uncontrolled - HgbAc 11.6 - Continue Levemir, Novolog sliding scale - Resume metformin, Glyburide on discharge 8. Depression - Prozac, Trazodone held secondary to hyponatremia 9. Nicotine dependence - Continue nicotine patch 10. Cocaine dependence 11. Iron deficiency anemia - Start iron supplementation 12. Hyponatremia - Sodium is 129 corrected for hyperglycemia - Continue fluid restriction 13. Hypokalemia - Improved 14. Hypomagnesemia - Continue magnesium supplementation 15. Disposition - Plan for rehab at [facility]
[2017-06-10 14:30] VITALS: BP 146/87; PULSE 88; TEMP 98
[2017-06-10] MEDS: BENZOCAINE/MENTH/CETYLPYRD CL 1 EACH LOZENGE MM PRN (16:25)
[2017-06-11] MEDS ORDERED: FERROUS SO4 325 MG TABLET (FP) PO SCH (10:00)
== END 2017-06-10 16:28 | disposition home or self-care (01) | DRG 133 ==
LOC: JER 15:18 → JERBED 19:05 → J5S 21:27
PROVIDERS: ADMIT Internal Medicine; ATTEND Internal Medicine
DX: J96.01 Acute respiratory failure with hypoxia (principal); E83.42 Hypomagnesemia; E87.1 Hypo-osmolality and hyponatremia; E87.8 Other disorders of electrolyte and fluid balance, not elsewhere classified; F11.20 Opioid dependence, uncomplicated; R64 Cachexia; E11.65 Type 2 diabetes mellitus with hyperglycemia; J45.901 Unspecified asthma with (acute) exacerbation; J44.1 Chronic obstructive pulmonary disease with (acute) exacerbation; E87.6 Hypokalemia; I25.10 Atherosclerotic heart disease of native coronary artery without angina pectoris; F17.210 Nicotine dependence, cigarettes, uncomplicated; D64.9 Anemia, unspecified; F32.9 Major depressive disorder, single episode, unspecified; I10 Essential (primary) hypertension; F10.10 Alcohol abuse, uncomplicated; J96.02 Acute respiratory failure with hypercapnia; E78.5 Hyperlipidemia, unspecified; D50.9 Iron deficiency anemia, unspecified; F14.23 Cocaine dependence with withdrawal; Z88.0 Allergy status to penicillin; Z79.84 Long term (current) use of oral hypoglycemic drugs
CPT/HCPCS: 36415; 36600; 71020-TC; 71250-TC; 80048; 80053; 81003; 81015; 82272; 82436; 82728; 82803; 82947; 83036; 83540; 83550; 83735; 83880; 83930; 84100; 84133; 84300; 85025; 85027; 87040; 87070; 87086; 87205; 93005; 93010; 94640; 97116-GP; 97161-GP; 99283-25